=== PATIENT | female | born 1950 | race Caucasian/White ===

== ENCOUNTER 2016-12-28 10:28 | Outpatient (CLI) | payer MEDICAID | END 2016-12-28 15:00 | LOC: ACC 10:28 | DX: I82.409 Acute embolism and thrombosis of unspecified deep veins of unspecified lower extremity (principal); Z79.01 Long term (current) use of anticoagulants; Z51.81 Encounter for therapeutic drug level monitoring | CPT/HCPCS: G0463 ==

== ENCOUNTER → 2016-12-28 | Outpatient (CLI) | payer MEDICAID ==
[~2016-12-28] MED LIST: ATORVASTATIN CA80 MG PO; AZITHROMYCIN250 M1 PO; BACTRIM 400 MG-1 TAB PO; BACTRIM DS 8001 TA1 PO; BACTRIM DS 8001 TAB PO; BISOPROLOL FUMA10 MG PO; BUMETANIDE 1MG T1 MG PO; CLINDAMYCIN HC300 MG PO; FUROSEMIDE 20MG20 MG PO; FUROSEMIDE 40MG40 M1 PO; GABAPENTIN 600600 MG PO; HUMALOG100 U/M1 SC; HUMALOG100 U/ML SC; KEFLEX 500MG.500 MG PO; LANTUS INS100 UNITS/ SC; LASIX 20MG. TAB20 MG PO; LASIX20 MG PO; LEVEMIR 10100 UNITS/ SC; LEVEMIR100 U/ML SC; LEVOTHYROXINE0.05 M2 PO; LISINOPRIL 10MG10 MG PO; LOVASTATIN20 MG PO; METOPROLOL SUCC25 M1 PO; NEURONTIN 300M300 MG PO; PRADAXA75 M1 PO; REQUIP 1 MG TABL1 MG PO; ROPINIROLE HYDRO1 MG PO; TESSALON PERLE100 M1 PO; TORADOL10 MG PO; TRAMADOL 50MG T50 M1 PO; TRAMADOL 50MG T50 MG PO; WARFARIN SOD5 MG PO; ZESTRIL5 MG NG; [UNRECOGNIZED DRUG - OTHER] PO
== END ==
LOC: LAB 11:16
DX: I82.409 Acute embolism and thrombosis of unspecified deep veins of unspecified lower extremity (principal); Z79.01 Long term (current) use of anticoagulants; Z51.81 Encounter for therapeutic drug level monitoring

== ENCOUNTER 2016-12-31 08:56 | Outpatient (CLI) | payer MEDICAID | END 2016-12-31 12:02 | LOC: ACC 08:56 → LAB 08:56 → ACC 12:02 | DX: I82.409 Acute embolism and thrombosis of unspecified deep veins of unspecified lower extremity (principal); Z79.01 Long term (current) use of anticoagulants; Z51.81 Encounter for therapeutic drug level monitoring ==

== ENCOUNTER 2017-01-04 10:30 | Outpatient (CLI) | payer MEDICAID | END 2017-01-04 12:04 | LOC: ACC 10:30 | DX: I82.409 Acute embolism and thrombosis of unspecified deep veins of unspecified lower extremity (principal); Z79.01 Long term (current) use of anticoagulants; Z51.81 Encounter for therapeutic drug level monitoring ==

== ENCOUNTER 2017-01-07 11:27 | Outpatient (CLI) | payer MEDICAID | END 2017-01-07 14:05 | LOC: ACC 11:27 | DX: I82.409 Acute embolism and thrombosis of unspecified deep veins of unspecified lower extremity (principal); Z79.01 Long term (current) use of anticoagulants; Z51.81 Encounter for therapeutic drug level monitoring | CPT/HCPCS: G0463 ==

== ENCOUNTER 2017-02-08 19:35 | Emergency (ER) | payer MEDICARE, MEDICAID ==
[~2017-02-08] VITALS: Ht 165.1 cm; Wt 63.5 kg
[2017-02-08] MEDS ORDERED: HUMALOG KW100 UNIT/1 SQ (19:49)
--- OUTSIDE RECORDS SUMMARY | 2017-02-08 19:53 | External Medical Summary Rpt | CCD ---
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 Name Role Phone Leonidas Lanier MD, Unavailable Unavailable Leonidas Ren Unavailable Unavailable , Sanjeev Ren MD Purpose Continuity of Care Document - 04-26-2013 through 2016 Problems Code Diagnosis DOS Provider Status 250.60 250.60 DIAB 05-03-2013 Pan Andrew NEURO [facility] MANIFEST, Hospital TYPE II OR UNSPEC TYPE, NOT UNCNTRLD 250.70 250.70 DIAB 05-03-2013 Pan Andrew PERIPH [facility] CIRC DIS, Hospital TYPE II OR UNSPEC TYPE, NOT UNCNTRLD 357.2 357.2 05-03-2013 Pan NEUROPATHY [facility] IN DIABETES Hospital 403.90 403.90 05-03-2013 Pan HYPTNSV CHR [facility] KID DIS, Hospital UNSPEC, W CHR KD STAGE I-IV OR UNSP 493.90 493.90 05-03-2013 Pan ASTHMA, [facility] UNSPECIFIED Hospital 585.9 585.9 05-03-2013 Pan CHRONIC [facility] KIDNEY Hospital DISEASE, UNSPECIFIED 785.4 785.4 05-03-2013 [place] GANGRENE [facility] V12.54 V12.54 05-03-2013 Pan 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 V58.61 V58.61 05-03-2013 Pan ANTICOAGULA [facility] NTS,LT,CURR Hospital ENT USE V58.67 V58.67 05-03-2013 Pan LONG-TERM [facility] (CURRENT) Hospital USE OF INSULIN 250.81 250.81 DIAB 04-26-2013 Pan Andrew OT SPEC [facility] MANIFEST, Hospital TYPE I [JUVENILE TYPE], NOT UNCNTR 401.9 401.9 04-26-2013 Pan HYPERTENSIO [facility] 707.15 707.15 04-26-2013 Pan ULCER OF [facility] OF FOOT Allergies, Adverse Reactions, Alerts Type Drug Allergy Adverse Reaction to Substance Substance Reaction Severity Penicillin BLACKS OUT Unknown Butorphanol BLACKED OUT Unknown Medications Na ND Rx Da Fi Fi Am Da Di Ph RX Ph St me C No te ll ll ou ys ag ar # ys at rm s nt no ma ic us Or Da si cy ia de te s n re d Li 00 01 0 No si 17 -3 no 23 0- Lo pr 75 20 ng il 81 14 er 0 5M Ac G ti Ta ve bl et ME 51 01 0 No TO 07 -3 VT 90 0- Lo OL 80 20 ng OL 12 14 er 0 TA Ac RT ti RA ve TE 50 MG TA B SP 46 01 0 No S 28 -2 15 70 9- Lo 00 20 ng GM 66 14 er /6 0 0 Ac ML ti ve HERNANDEZ SP EN SI ON ME 51 01 0 No TO 07 -2 VT 90 9- Lo OL 25 20 ng OL 52 14 er 0 TA Ac RT ti RA ve TE 25 MG TA B 16 01 1 No PI 10 -2 RI 30 9- Lo N 35 20 ng EC 60 14 er 9 81 Ac ti MG ve TA BL ET VT 51 01 1 No AV 07 -2 90 9- Lo TA 78 20 ng TI 22 14 er N 0 SO Ac DI ti UM ve 40 MG TA B LO 00 01 0 No VE 07 -2 NO 50 8- Lo X 62 20 ng 40 04 14 er 1 MG Ac /0 ti .4 ve ML SY RI NG E ME 51 01 1 No TO 07 -2 VT 90 8- Lo OL 25 20 ng OL 52 14 er 0 TA Ac RT ti RA ve TE 25 MG TA B FU 51 01 2 No RO 07 -2 SE 90 8- Lo PA 07 20 ng DE 22 14 er 0 20 Ac ti MG ve TA BL ET CO 00 01 2 No UM 05 -2 AD 60 8- Lo IN 17 20 ng 5 27 14 er 0 MG Ac ti TA ve BL ET RE 00 01 2 No QU 00 -2 IP 74 8- Lo 1 89 20 ng 22 14 er MG 0 Ac TA ti BL ve ET VA 00 01 2 No NC 40 -2 OM 96 8- Lo YC 53 20 ng IN 30 14 er 1 1 Ac GM ti ve AL SO 00 01 2 No DI 40 -2 UM 97 8- Lo 98 20 ng CH 30 14 er LO 2 RI Ac DE ti ve 0. 9% SO JAY TI ON LI 63 01 2 No SI 73 -2 NO 90 7- Lo VT 34 20 ng IL 91 14 er 0 10 Ac ti MG ve TA BL ET FS 01 3 No -2 BL 7- Lo OO 20 ng D 14 er HERNANDEZ GA Ac R ti ve HU 00 01 3 No MA 00 -2 LO 27 7- Lo G 51 20 ng 10 01 14 er 0 7 UN Ac IT ti S/ ve ML AL FU 00 01 0 No RO 40 -2 SE 96 7- Lo PA 10 20 ng DE 20 14 er 4 40 Ac ti MG ve /4 ML AL Ga 68 01 3 No ba 08 -2 pe 40 7- Lo nt 56 20 ng in 30 14 er 1 30 Ac 0M ti G ve Ca ps ul e VA 00 01 0 No NC 40 -2 OM 96 7- Lo YC 53 20 ng IN 30 14 er 1 1 Ac GM ti ve AL SO 00 01 0 No DI 40 -2 UM 97 7- Lo 98 20 ng CH 30 14 er LO 2 RI Ac DE ti ve 0. 9% SO JAY TI ON Vital Signs 05-03-2013 11:07 Name Value Interpretat Reference Comment ion Range Body 98.5 [degF] Temperature BP 69 mm[Hg] Diastolic BP Systolic 125 mm[Hg] Heart 85 /min Rate/Pulse Respiratory 20 /min Rate 05-03-2013 08:00 Name Value Interpretat Reference Comment ion Range O2% 98 % 04-30-2013 20:00 Name Value Interpretat Reference Comment ion Range O2% 97 % 04-30-2013 13:40 Name Value Interpretat Reference Comment ion Range Body 98.4 [degF] Temperature BP 99 mm[Hg] Diastolic BP Systolic 153 mm[Hg] Height 165.10 cm Respiratory 20 /min Rate Weight 247 [lb_av] Measured Weight 112.124 kg Measured 04-30-2013 13:38 Name Value Interpretat Reference Comment ion Range Heart 88 /min Rate/Pulse 04-26-2013 15:35 Name Value Interpretat Reference Comment ion Range Body 98.1 [degF] Temperature BP 82 mm[Hg] Diastolic BP Systolic 146 mm[Hg] Heart 90 /min Rate/Pulse O2% 95 % Respiratory 20 /min Rate 04-26-2013 15:17 Name Value Interpretat Reference Comment ion Range BP 103 mm[Hg] Diastolic BP Systolic 153 mm[Hg] Heart 90 /min Rate/Pulse O2% 99 % Respiratory 20 /min Rate Results Labs Lab Lab Date Result Refere Interp Status Commen Order Detail nces retati t Range on Whole blood INR measurement (02-01-2017 11:55) Prothro = 55.2 9.4-11. complet mbin 017 SECONDS 8 ed time 11:55 (PT) in platele t poor p Whole = 5.03 0.9-1.1 complet blood 017 ed INR 11:55 measure ment Whole blood INR measurement (02-01-2017 10:30) Whole = 5.0 0.9-1.1 complet blood 017 ed INR 10:30 measure ment Hemoglobin A1c in Blood (11-26-2016 09:28) Hemoglo 5.7 % 0.0% Normal complet bin A1c 017 - ed in 09:28 7.0% Blood Phosphate SerPl-mCnc (10-30-2016 06:17) Phospha 4.4 2.5-4.5 complet te 017 mg/dL ed SerPl-m 06:17 Cnc Magnesium SerPl-mCnc (10-30-2016 06:17) Magnesi 1.9 1.9-2.4 complet um 017 mg/dL ed SerPl-m 06:17 Cnc Phosphate SerPl-mCnc (10-28-2016 02:36) Phospha 5.5 2.5-4.5 complet te 017 mg/dL ed SerPl-m 02:36 Cnc Magnesium SerPl-mCnc (10-28-2016 02:36) Magnesi 2 2.1 1.9-2.4 complet um 017 mg/dL ed SerPl-m 02:36 Cnc Cortis SerPl-mCnc (10-27-2016 12:14) Cortis 23.0 complet SerPl-m 017 ug/dL ed Cnc 12:14 Cortis SerPl-mCnc (10-27-2016 11:44) Cortis 22.2 complet SerPl-m 017 ug/dL ed Cnc 11:44 Lactate Bld-sCnc (10-27-2016 11:10) Lactate 1.8 complet 017 mmol/L ed Bld-sCn 11:10 c Cortis SerPl-mCnc (10-27-2016 10:55) Cortis 15.5 complet SerPl-m 017 ug/dL ed Cnc 10:55 Vancomycin SerPl-mCnc (10-27-2016 02:04) Vancomy 18.9 0-40.0 complet isai 017 ug/mL ed SerPl-m 02:04 Cnc MDRO Wnd (10-26-2016 19:22) Bacteri [id number] complet a XXX 017 00 not ed Anaerob 19:22 isolate e+Aerob d e Cult (qualif ier value) SCT NMDR NO MULTI DRUG RESISTA NT ORGANIS MS ISOLATE D L CC XXX NOTAP complet VC-aCnc 017 NOT ed 19:22 APPLICA BLE L Hgb A1c MFr Bld (10-26-2016 07:51) Hgb A1c 6.1 % 4.7-6.0 complet MFr 017 ed Bld 07:51 Lactate Bld-sCnc (10-26-2016 04:23) Lactate 1.4 complet 017 mmol/L ed Bld-sCn 04:23 c Phosphate SerPl-mCnc (10-26-2016 03:45) Phospha 5.4 2.5-4.5 complet te 017 mg/dL ed SerPl-m 03:45 Cnc Magnesium SerPl-mCnc (10-26-2016 03:45) Magnesi 2.1 1.9-2.4 complet um 017 mg/dL ed SerPl-m 03:45 Cnc Ca-I SerPl ISE-sCnc (10-26-2016 03:45) Ca-I 4.1 4.6-5.1 complet SerPl 017 mg/dL ed ISE-sCn 03:45 c Hgb A1c MFr Bld (10-26-2016 03:45) Hgb A1c 6.2 % 4.7-6.0 complet MFr 017 ed Bld 03:45 Ketones SerPl-mCnc (10-25-2016 22:22) Ketones NEG NEGATIV complet 017 NEGATIV E ed SerPl-m 22:22 E L Cnc Cortis SerPl-mCnc (10-25-2016 22:22) Cortis 11.5 complet SerPl-m 017 ug/dL ed Cnc 22:22 Prealb SerPl-mCnc (10-25-2016 22:22) Prealb 8.0 20-41 complet SerPl-m 017 mg/dL ed Cnc 22:22 Magnesium SerPl-mCnc (10-25-2016 22:22) Magnesi 2.1 1.9-2.4 complet um 017 mg/dL ed SerPl-m 22:22 Cnc Salicylates SerPl-sCnc (10-25-2016 22:22) Salicyl 0.8 0-25.0 complet ates 017 mg/dL ed SerPl-s 22:22 Cnc NT-proBNP SerPl-mCnc (10-25-2016 22:22) NT-proB [id number] 0-899 complet ELECTROLYSIS INVESTIGATOR 017 pg/mL ed SerPl-m 22:22 Cnc Lactate Bld-sCnc (10-25-2016 21:42) Lactate 3.0 complet 017 mmol/L ed Bld-sCn 21:42 c Ca-I SerPl ISE-sCnc (10-25-2016 21:42) Ca-I 4.1 4.6-5.1 complet SerPl 017 mg/dL ed ISE-sCn 21:42 c Lactate Bld-sCnc (10-25-2016 21:42) Lactate DUP complet 017 DUPLICA ed Bld-sCn 21:42 TE c ORDER,C REDITED L mmol/L Bacteria Ur Cult (10-25-2016 20:32) Bacteri [id number] complet a XXX 017 07 ed Anaerob 20:32 Escheri e+Aerob james e Cult coli (organi ) SCT ECOL ESCHERI JAMES COLI L CC XXX NOTAP complet VC-aCnc 017 NOT ed 20:32 APPLICA BLE L Sodium Ur-sCnc (10-25-2016 20:32) Sodium 85 complet Ur-sCnc 017 mmol/L ed 20:32 Creat Ur-mCnc (10-25-2016 20:32) Creat 86 complet Ur-mCnc 017 mg/dL ed 20:32 Bacteria XXX Anaerobe+Aerobe Cult (10-25-2016 17:49) Bacteri [id number] complet a XXX 017 06 No ed Anaerob 17:49 growth e+Aerob (qualif e Cult ier value) SCT NGB5 NO GROWTH DAY 4. L Bacteria XXX Anaerobe+Aerobe Cult (10-25-2016 17:10) Bacteri [id number] complet a XXX 017 06 No ed Anaerob 17:10 growth e+Aerob (qualif e Cult ier value) SCT NGB5 NO GROWTH DAY 4. L Phosphate SerPl-mCnc (10-25-2016 17:10) Phospha 5.7 2.5-4.5 complet te 017 mg/dL ed SerPl-m 17:10 Cnc Magnesium SerPl-mCnc (10-25-2016 17:10) Magnesi 2.2 1.9-2.4 complet um 017 mg/dL ed SerPl-m 17:10 Cnc Lactate Bld-sCnc (10-25-2016 17:10) Lactate 4.9 complet 017 mmol/L ed Bld-sCn 17:10 c Differential panel, method unspecified - (10-25-2016 14:15) Anisocy 2+ complet tosis 017 ed [Presen 14:15 ce] in Blood LYMPH 8 % 10% - Low complet 017 50% ed 14:15 Platele NORMAL complet ts 017 ed [Presen 14:15 ce] in Blood by Light microsc opy Stomato 1+ complet cytes 017 ed [Presen 14:15 ce] in Blood by Light microsc opy Bas Metab 2000 Pnl SerPl (09-24-2016 11:47) Glucose 130 70-130 complet BldC 017 mg/dL ed Glucomt 11:47 r-mCnc Prothrombin time (09-24-2016 08:20) INR PPP 2.56 complet 017 ed 08:20 Prothro 28.7 9.6-11. complet mbin 017 Seconds 5 ed time 08:20 Bas Metab 1999 Pnl SerPl (09-24-2016 07:57) Glucose 113 70-130 complet BldC 017 mg/dL ed Glucomt 07:57 r-[facility] Bas Metab 1999 Pnl SerPl (09-23-2016 20:31) Glucose 143 70-130 complet BldC 017 mg/dL ed Glucomt 20:31 r-[facility] Bas Metab 1999 Pnl SerPl (09-23-2016 16:00) Glucose 143 70-130 complet BldC 017 mg/dL ed [facility] (09-23-2016 14:05) INR PPP 2.67 complet 017 ed 14:05 Prothro 30.0 9.6-11. complet mbin 017 Seconds 5 ed time 14:05 Bas Metab 1999 Pnl SerPl (09-23-2016 12:10) Glucose 98 70-130 complet BldC 017 mg/dL ed Glucomt 12:10 [facility] P[facility] Ser[facility] (09-23-2016 08:42) Glucose 99 70-130 complet BldC 017 mg/dL ed [facility]comt 08:42 [facility] Ren[facility] Func [facility] Pnl SerPl (09-23-2016 07:28) GFR/BSA 16 >60 complet .pred 017 mL/min/ ed SerPl 07:28 1.73 MDRD-Ar VRat BUN/Cre 5.5 7.0-25. complet at 017 0 ed SerPl 07:28 Anion 8.0 3.0-11. complet Gap3 017 mmol/L 0 ed SerPl-s 07:28 Cnc Phospha 2.7 2.4-5.1 complet te 017 mg/dL ed SerPl-m 07:28 Cnc Albumin 2.80 3.20-4. complet 017 g/dL 80 ed SerPl-m 07:28 Cnc Calcium 06-22-2 8.4 8.7-10. complet 017 mg/dL 4 ed XXX-sCn 07:28 c CO2 09-23-2 25.0 20.0-31 complet SerPl-s 017 mmol/L .0 ed Cnc 07:28 Chlorid 09-23-2 103 99-109 complet e 017 mmol/L ed SerPl-s 07:28 Cnc Potassi 09-23-2 3.4 3.5-5.5 complet um 017 mmol/L ed Bld-sCn 07:28 c Sodium 09-23-2 136 132-146 complet Bld-sCn 017 mmol/L ed c 07:28 Creat 09-23-2 2.90 0.60-1. complet Bld-mCn 017 mg/dL 30 ed c 07:28 BUN 09-23-2 16 9-23 complet Bld-mCn 017 mg/dL ed c 07:28 Glucose 122 70-100 complet 017 mg/dL ed Bld-mCn 07:28 c CBC (hemogram) Bld Auto (09-23-2016 07:28) Platele 09-23-2 395 150-450 complet t # Bld 017 10*3/mm ed Auto 07:28 3 PMV Bld 2 8.8 fL 6.0-12. complet Auto 017 0 ed 07:28 RDW RBC 09-23-2 59.2 fl 37.0-54 complet Auto 017 .0 ed 07:28 RDW RBC 09-23-2 18.9 % 11.3-14 complet 017 .5 ed Auto-Rt 07:28 o MCHC 09-23-2 29.5 32.0-36 complet RBC 017 g/dL .0 ed Auto-mC 07:28 nc MCH RBC 09-23-2 25.7 pg 27.0-31 complet Qn 017 .0 ed Auto 07:28 MCV RBC 09-23-2 87.1 fL 80.0-99 complet Auto 017 .0 ed 07:28 Hct VFr 09-23-2 33.2 % 34.5-44 complet Bld 017 .0 ed Auto 07:28 Hgb 09-23-2 9.8 11.5-15 complet Bld-mCn 017 g/dL .5 ed c 07:28 RBC # 22-2 3.81 3.89-5. complet Bld 017 10*6/mm 14 ed Auto 07:28 3 WBC 11.09 3.50-10 complet nRBC 017 10*3/mm .80 ed cor # 07:28 3 Bld Bas Metab 2000 Pnl SerPl (09-22-2016 19:50) Glucose 146 70-130 complet BldC 017 mg/dL ed [facility]comt 19:50 [facility] Ser[facility] (09-22-2016 17:31) Glucose 193 70-130 complet BldC 017 mg/dL ed Glucomt 17:31 r-[facility] Bas Metab 1999 Pnl SerPl (09-22-2016 12:05) Glucose 117 70-130 complet BldC 017 mg/dL ed Glucomt 12:05 [facility] 1999 Pnl SerPl (09-22-2016 08:33) Glucose 107 70-130 complet BldC 017 mg/dL ed Glucomt 08:33 [facility] Prothrombin time (09-22-2016 07:40) INR PPP 2.13 complet 017 ed 07:40 Prothro 23.8 9.6-11. complet mbin 017 Seconds 5 ed time 07:40 Bas Metab 1999 Pnl SerPl (09-21-2016 19:23) Glucose 140 70-130 complet BldC 017 mg/dL ed Glucomt 19:23 [facility] Pnl Ser[facility] (09-21-2016 16:23) Glucose 09-21- 126 70-130 complet BldC 017 mg/dL ed Glucomt 16:23 [facility] A+B+C 7a Pnl Ser (09-21-2016 13:28) HCV Ab [id number] Non-Su complet Ser 017 07 ctive ed Donr Ql 13:28 Non-Su ctive SCT HBV [id number] Non-[place] complet core 017 07 ctive ed IgM 13:28 Non-[place] SerPl ctive Ql IA SCT HAV IgM [id number] Non-Su complet SerPl 017 07 ctive ed Ql IA 13:28 Non-[place] ctive SCT HBV [id number] Non-[place] complet surface 017 07 ctive ed Ag 13:28 Non-Su SerPl ctive Ql IA SCT Bas Metab 1999 Pnl SerPl (09-21-2016 11:38) Glucose 124 70-130 complet BldC 017 mg/dL ed Glucomt 11:38 r[facility] Bas Metab 1999 Pnl SerPl (09-21-2016 07:35) Glucose 95 70-130 complet BldC 017 mg/dL ed Glucomt 07:35 [facility] Renal Func 1999 Pnl SerPl (09-21-2016 03:47) GFR/BSA 12 >60 complet .pred 017 mL/min/ ed SerPl 03:47 1.73 MDRD-Ar VRat BUN/Cre 5.9 7.0-25. complet at 017 0 ed SerPl 03:47 Anion 6.0 3.0-11. complet Gap3 017 mmol/L 0 ed SerPl-s 03:47 Cnc Phospha 2.7 2.4-5.1 complet te 017 mg/dL ed SerPl-m 03:47 Cnc Albumin 2.80 3.20-4. complet 017 g/dL 80 ed SerPl-m 03:47 Cnc Calcium 8.6 8.7-10. complet 017 mg/dL 4 ed XXX-sCn 03:47 c CO2 27.0 20.0-31 complet SerPl-s 017 mmol/L .0 ed Cnc 03:47 Chlorid 102 99-109 complet e 017 mmol/L ed SerPl-s 03:47 Cnc Potassi 3.2 3.5-5.5 complet um 017 mmol/L ed Bld-sCn 03:47 c Sodium 135 132-146 complet Bld-sCn 017 mmol/L ed c 03:47 Creat 3.90 0.60-1. complet Bld-mCn 017 mg/dL 30 ed c 03:47 BUN 23 9-23 complet Bld-mCn 017 mg/dL ed c 03:47 Glucose 101 70-100 complet 017 mg/dL ed Bld-mCn 03:47 c Prothrombin time (09-21-2016 03:47) INR PPP 2.63 complet 017 ed 03:47 Prothro 29.5 9.6-11. complet mbin 017 Seconds 5 ed time 03:47 Bas Metab 1999 Pnl SerPl (09-20-2016 20:27) Glucose 169 70-130 complet BldC 017 mg/dL ed Glucomt 20:27 r-mCnc Bas Metab 1999 Pnl SerPl (09-20-2016 16:38) Glucose 170 70-130 complet BldC 017 mg/dL ed Glucomt 16:38 r-mCnc Bas Metab 1999 Pnl SerPl (09-20-2016 11:35) Glucose 139 70-130 complet BldC 017 mg/dL ed Glucomt 11:35 r[facility] Bas Metab 1999 Pnl SerPl (09-20-2016 07:50) Glucose 120 70-130 complet BldC 017 mg/dL ed Glucomt 07:50 r-nc Prothrombin time (09-20-2016 03:24) INR PPP 3.44 complet 017 ed 03:24 Prothro 38.9 9.6-11. complet mbin 017 Seconds 5 ed time 03:24 Comp Metab 1997 Pnl SerPl (09-20-2016 03:24) Anion 9.0 3.0-11. complet Gap3 017 mmol/L 0 ed SerPl-s 03:24 Cnc BUN/Cre 4.4 7.0-25. complet at 017 0 ed SerPl 03:24 Albumin 1.0 1.5-2.5 complet /Glob 017 g/dL ed SerPl 03:24 Globuli 2.6 complet n Ur 017 gm/dL ed Elph-mC 03:24 nc GFR/BSA 12 >60 complet .pred 017 mL/min/ ed SerPl 03:24 1.73 MDRD-Ar VRat Bilirub 0.4 0.3-1.2 complet 017 mg/dL ed SerPl-m 03:24 Cnc ALP 09-20-2 126 U/L 25-100 complet SerPl-c 017 ed Cnc 03:24 AST 09-20-2 29 U/L 0-33 complet SerPl-c 017 ed Cnc 03:24 ALT 09-20-2 15 U/L 7-40 complet SerPl w 017 ed 03:24 P-5'-P- cCnc Albumin 09-20-2 2.60 3.20-4. complet 017 g/dL 80 ed SerPl-m 03:24 Cnc Prot 09-20-2 5.2 5.7-8.2 complet SerPl-m 017 g/dL ed Cnc 03:24 Calcium 09-20-2 8.2 8.7-10. complet 017 mg/dL 4 ed XXX-sCn 03:24 c CO2 09-20-2 25.0 20.0-31 complet SerPl-s 017 mmol/L .0 ed Cnc 03:24 Chlorid 09-20-2 103 99-109 complet e 017 mmol/L ed SerPl-s 03:24 Cnc Potassi 09-20-2 3.4 3.5-5.5 complet um 017 mmol/L ed Bld-sCn 03:24 c Sodium 09-20-2 137 132-146 complet Bld-sCn 017 mmol/L ed c 03:24 Creat 09-20-2 3.90 0.60-1. complet Bld-mCn 017 mg/dL 30 ed c 03:24 BUN 09-20-2 17 9-23 complet Bld-mCn 017 mg/dL ed c 03:24 Glucose 09-20-2 127 70-100 complet 017 mg/dL ed Bld-mCn 03:24 c CBC W Diff pnl,unspecified Bld (09-20-2016 03:24) Imm -19-2 0.07 0.00-0. complet Granulo 017 10*3/mm 03 ed cytes # 03:24 3 Bld Basophi 19-2 0.08 0.00-0. complet ls # 017 10*3/mm 20 ed Bld 03:24 3 Auto Eosinop 09-20-2 0.29 0.10-0. complet hil # 017 10*3/mm 30 ed Bld 03:24 3 Auto Monocyt 06-19-2 0.91 0.00-1. complet es # 017 10*3/mm 00 ed Bld 03:24 3 Auto Lymphoc -19-2 1.20 0.60-4. complet ytes # 017 10*3/mm 80 ed Bld 03:24 3 Auto Neutrop -19-2 8.48 1.50-8. complet hils # 017 10*3/mm 30 ed Bld 03:24 3 Auto Imm 19-2 0.6 % 0.0-0.6 complet Granulo 017 ed cytes/l 03:24 euk NFr Bld Basophi 19-2 0.7 % 0.0-1.0 complet ls/leuk 017 ed NFr 03:24 Bld Auto Eosinop 09-20-2 2.6 % 0.0-3.0 complet hil/mick 017 ed k NFr 03:24 Bld Auto Monocyt 19-2 8.3 % 0.0-12. complet es/leuk 017 0 ed NFr 03:24 Bld Auto Lymphoc 19-2 10.9 % 24.0-44 complet ytes/le 017 .0 ed uk NFr 03:24 Bld Auto Neutrop 19-2 76.9 % 41.0-71 complet hils/le 017 .0 ed uk NFr 03:24 Bld Auto Platele 19-2 397 150-450 complet t # Bld 017 10*3/mm ed Auto 03:24 3 PMV Bld 09-20-2 9.1 fL 6.0-12. complet Auto 017 0 ed 03:24 RDW RBC 19-2 58.1 fl 37.0-54 complet Auto 017 .0 ed 03:24 RDW RBC 19-2 18.4 % 11.3-14 complet 017 .5 ed Auto-Rt 03:24 o MCHC 09-20-2 30.0 32.0-36 complet RBC 017 g/dL .0 ed Auto-mC 03:24 nc MCH RBC 09-20-2 26.1 pg 27.0-31 complet Qn 017 .0 ed Auto 03:24 MCV RBC 09-20-2 87.0 fL 80.0-99 complet Auto 017 .0 ed 03:24 Hct VFr 30.0 % 34.5-44 complet Bld 017 .0 ed Auto 03:24 Hgb 9.0 11.5-15 complet Bld-mCn 017 g/dL .5 ed c 03:24 RBC # 3.45 3.89-5. complet Bld 017 10*6/mm 14 ed Auto 03:24 3 WBC 11.03 3.50-10 complet nRBC 017 10*3/mm .80 ed cor # 03:24 3 Bld Phosphate SerPl-mCnc (09-20-2016 03:24) Phospha 2.4 2.4-5.1 complet te 017 mg/dL ed SerPl-m 03:24 Cnc Mg Ionized SerPl-mCnc (09-20-2016 03:24) Magnesi 2.0 1.3-2.7 complet um 017 mg/dL ed SerPl-m 03:24 Cnc Bas Metab 2000 Pnl SerPl (09-19-2016 20:20) Glucose 147 70-130 complet BldC 017 mg/dL ed Glucomt 20:20 r-mCnc Bas Metab 2000 Pnl SerPl (09-19-2016 16:28) Glucose 09-19- 141 70-130 complet BldC 017 mg/dL ed Glucomt 16:28 r-mCnc Bas Metab 2000 Pnl SerPl (09-19-2016 11:46) Glucose 156 70-130 complet BldC 017 mg/dL ed Glucomt 11:46 r-mCnc Bas Metab 2000 Pnl SerPl (09-19-2016 07:41) Glucose 09-19- 105 70-130 complet BldC 017 mg/dL ed Glucomt 07:41 r-mCnc Cortis SerPl-mCnc (09-19-2016 07:18) Cortis 31.00 complet SerPl-m 017 mcg/dL ed Cnc 07:18 Cortis SerPl-mCnc (09-19-2016 06:49) Cortis 25.30 complet SerPl-m 017 mcg/dL ed Cnc 06:49 Ferritin SerPl-mCnc (09-19-2016 06:07) Ferriti 2007.00 10.00-2 complet n 017 ng/mL 91.00 ed SerPl-m 06:07 Cnc Iron+TIBC Pnl SerPl (09-19-2016 06:07) Iron 21 % 15-50 complet Satn 017 ed MFr 06:07 SerPl TIBC 144 250-450 complet SerPl-m 017 mcg/dL ed Cnc 06:07 Iron 30 50-175 complet 24h 017 mcg/dL ed Ur-mRat 06:07 e Cortis SerPl-mCnc (09-19-2016 06:07) Cortis 14.90 complet SerPl-m 017 mcg/dL ed Cnc 06:07 Troponin I SerPl-mCnc (09-19-2016 06:07) Troponi 1.533 <=0.039 complet n I 017 ng/mL ed SerPl-m 06:07 Cnc Renal Func 2000 Pnl SerPl (09-19-2016 06:07) GFR/BSA 13 >60 complet .pred 017 mL/min/ ed SerPl 06:07 1.73 MDRD-Ar VRat BUN/Cre 4.2 7.0-25. complet at 017 0 ed SerPl 06:07 Anion 9.0 3.0-11. complet Gap3 017 mmol/L 0 ed SerPl-s 06:07 Cnc Phospha 2.4 2.4-5.1 complet te 017 mg/dL ed SerPl-m 06:07 Cnc Albumin 2.80 3.20-4. complet 017 g/dL 80 ed SerPl-m 06:07 Cnc Calcium 8.3 8.7-10. complet 017 mg/dL 4 ed XXX-sCn 06:07 c CO2 29.0 20.0-31 complet SerPl-s 017 mmol/L .0 ed Cnc 06:07 Chlorid 101 99-109 complet e 017 mmol/L ed SerPl-s 06:07 Cnc Potassi 3.6 3.5-5.5 complet um 017 mmol/L ed Bld-sCn 06:07 c Sodium 139 132-146 complet Bld-sCn 017 mmol/L ed c 06:07 Creat 3.60 0.60-1. complet Bld-mCn 017 mg/dL 30 ed c 06:07 BUN 15 9-23 complet Bld-mCn 017 mg/dL ed c 06:07 Glucose 113 70-100 complet 017 mg/dL ed Bld-mCn 06:07 c Mg Ionized SerPl-mCnc (09-19-2016 06:07) Magnesi 2.1 1.3-2.7 complet um 017 mg/dL ed SerPl-m 06:07 Cnc Prothrombin time (09-19-2016 06:07) INR PPP 6.85 complet 017 ed 06:07 Prothro 79.2 9.6-11. complet mbin 017 Seconds 5 ed time 06:07 Bas Metab 1999 Pnl SerPl (09-18-2016 21:06) Glucose 142 70-130 complet BldC 017 mg/dL ed Glucomt 21:06 r-mCnc C dif Tox gens Stl Ql PCR (09-18-2016 20:59) C dif [id number] Negativ complet Tox 017 01 e ed gens 20:59 Detecte Stl Ql d SCT PCR Bas Metab 1999 Pnl SerPl (09-18-2016 16:18) Glucose 145 70-130 complet BldC 017 mg/dL ed Glucomt 16:18 r-mCnc Troponin I SerPl-mCnc (09-18-2016 12:24) Troponi 1.771 <=0.039 complet n I 017 ng/mL ed SerPl-m 12:24 Cnc Vit D25+D1,25 OH+D1,25 Pnl SerPl-mCnc (09-18-2016 12:24) 25(OH)D 38.1 complet 3 017 ng/ml ed SerPl-m 12:24 Cnc Prothrombin time (09-18-2016 12:24) INR PPP 6.88 complet 017 ed 12:24 Prothro 79.6 9.6-11. complet mbin 017 Seconds 5 ed time 12:24 Bas Metab 1999 Pnl SerPl (09-18-2016 11:37) Glucose 132 70-130 complet BldC 017 mg/dL ed Glucomt 11:37 r-mCnc Bas Metab 1999 Pnl SerPl (09-18-2016 07:21) Glucose 109 70-130 complet BldC 017 mg/dL ed Glucomt 07:21 r-mCnc Bas Metab 1999 Pnl SerPl (09-18-2016 05:15) Glucose 119 70-130 complet BldC 017 mg/dL ed Glucomt 05:15 r-mCnc LDH SerPl-cCnc (09-18-2016 04:21) LDH 281 U/L 120-246 complet SerPl-c 017 ed Cnc 04:21 Cortis SerPl-mCnc (09-18-2016 04:21) Cortis 20.10 complet SerPl-m 017 mcg/dL ed Cnc 04:21 Amylase SerPl-cCnc (09-18-2016 04:21) Amylase 22 U/L 30-118 complet 017 ed SerPl-c 04:21 Cnc Bacteria Bld Cult (09-18-2016 04:21) Bacteri No complet a XXX 017 growth ed Aerobe 04:21 at 5 Cult days Bacteria Bld Cult (09-18-2016 03:28) Bacteri 09-18- No complet a XXX 017 growth ed Aerobe 03:28 at 5 Cult days BNP SerPl-mCnc (09-18-2016 03:28) BNP 1373.0 0.0-100 complet SerPl-m 017 pg/mL .0 ed Cnc 03:28 CK Pnl SerPl (09-18-2016 03:28) CK MB 2.96 0.00-5. complet SerPl-c 017 ng/mL 00 ed Cnc 03:28 CK 139 U/L 26-174 complet SerPl-c 017 ed Cnc 03:28 Troponin I SerPl-mCnc (09-18-2016 03:28) Troponi 2.052 <=0.039 complet n I 017 ng/mL ed SerPl-m 03:28 Cnc Procalcitonin SerPl-mCnc (09-18-2016 03:18) Procalc 1.03 complet itonin 017 ng/mL ed SerPl-m 03:18 Cnc Vancomycin Trough SerPl-mCnc (05-03-2013 06:25) Vancomy 11.2 10.0-20 complet isai 014 mcg/mL .0 ed Trough 06:25 SerPl-m Cnc BASIC METABOLIC PANEL (05-03-2013 06:25) Glucose 181 74-106 complet 014 mg/dL ed Bld-mCn 06:25 c BUN 40 7-18 complet Bld-mCn 014 mg/dL ed c 06:25 Creat 2.1 0.6-1.0 complet SerPl-m 014 mg/dL ed Cnc 06:25 Creat 50 50-200 complet Cl 014 ML/MIN ed predict 06:25 ed SerPl C-G-vRa te GFR/BSA 24 59- complet .pred 014 ML/MIN ed SerPl 06:25 Schwart z-vRate Sodium 142 136-145 complet SerPl-s 014 mmoL/L ed Cnc 06:25 Potassi 5.6 3.5-5.1 complet um 014 mmoL/L ed SerPl-s 06:25 Cnc Chlorid 108 98-107 complet e 014 mmoL/L ed SerPl-s 06:25 Cnc CO2 25 21.0-32 complet SerPl-s 014 mmoL/L .0 ed Cnc 06:25 Calcium 8.3 8.5-10. complet 014 mg/dL 1 ed SerPl-m 06:25 Cnc Glucose BldC Glucomtr-[facility] (05-02-2013 19:21) Glucose 214 70-110 complet BldC 014 mg/dl [facility] (05-02-2013 16:32) Glucose 205 70-110 complet BldC 014 mg/dl ed Glucomt 16:32 r-[facility] BASIC METABOLIC PANEL (05-02-2013 16:30) Glucose 194 74-106 complet 014 mg/dL ed Bld-mCn 16:30 c BUN 40 7-18 complet Bld-mCn 014 mg/dL ed c 16:30 Creat 2.2 0.6-1.0 complet SerPl-m 014 mg/dL ed Cnc 16:30 Creat 48 50-200 complet Cl 014 ML/MIN ed predict 16:30 ed SerPl C-G-vRa te GFR/BSA 23 59- complet .pred 014 ML/MIN ed SerPl 16:30 Schwart z-vRate Sodium 140 136-145 complet SerPl-s 014 mmoL/L ed Cnc 16:30 Potassi 5.7 3.5-5.1 complet um 014 mmoL/L ed SerPl-s 16:30 Cnc Chlorid 107 98-107 complet e 014 mmoL/L ed SerPl-s 16:30 Cnc CO2 27 21.0-32 complet SerPl-s 014 mmoL/L .0 ed Cnc 16:30 Calcium 8.2 8.5-10. complet 014 mg/dL 1 ed SerPl-m 16:30 [facility] Glucose dC [facility] (05-02-2013 11:59) Glucose 246 70-110 complet BldC 014 mg/dl ed Glucomt 11:59 [facility] Glucose dC [facility] (05-02-2013 06:41) Glucose 204 70-110 complet BldC 014 mg/dl ed Glucomt 06:41 [facility] LIPID PROFILE (05-02-2013 06:30) Cholest 192 Less complet 014 mg/dL than ed SerPl-m 06:30 200 Cnc HDLc 31.0 40-60 complet SerPl-m 014 MG/DL ed Cnc 06:30 LDLc 123.6 0-130 complet SerPl 014 mg/dL ed Calc-mC 06:30 nc VLDL 37.4 0-40 complet CHOLEST 014 UNK ed BESSIE 06:30 Trigl 187 30-200 complet SerPl-m 014 mg/dL ed Cnc 06:30 COMPREHENSIVE METABOLIC PANEL (05-02-2013 06:30) Glucose 221 74-106 complet 014 mg/dL ed Bld-mCn 06:30 c BUN 42 7-18 complet Bld-mCn 014 mg/dL ed c 06:30 Creat 2.4 0.6-1.0 complet SerPl-m 014 mg/dL ed Cnc 06:30 Creat 44 50-200 complet Cl 014 ML/MIN ed predict 06:30 ed SerPl C-G-vRa te GFR/BSA 21 59- complet .pred 014 ML/MIN ed SerPl 06:30 Schwart z-vRate Sodium 137 136-145 complet SerPl-s 014 mmoL/L ed Cnc 06:30 Potassi 5.5 3.5-5.1 complet um 014 mmoL/L ed SerPl-s 06:30 Cnc Chlorid 107 98-107 complet e 014 mmoL/L ed SerPl-s 06:30 Cnc CO2 24 21.0-32 complet SerPl-s 014 mmoL/L .0 ed Cnc 06:30 Calcium 8.0 8.5-10. complet 014 mg/dL 1 ed SerPl-m 06:30 Cnc Prot 6.4 6.4-8.2 complet SerPl-m 014 gm/dL ed Cnc 06:30 Albumin 3.0 3.4-5.0 complet 014 gm/dL ed SerPl-m 06:30 Cnc Globuli 3.4 1.3-3.2 complet n 014 gm/dL ed Ser-mCn 06:30 c Albumin 0.9 UNK 1.1-1.8 complet /Glob 014 ed SerPl-m 06:30 Rto Bilirub 0.4 0.2-1.0 complet 014 mg/dL ed SerPl-m 06:30 Cnc AST 14 U/L 15-37 complet SerPl-c 014 ed Cnc 06:30 ALT 17 U/L 12-78 complet SerPl-c 014 ed Cnc 06:30 ALP 142 U/L 50-136 complet SerPl-c 014 ed Cnc 06:30 CBC with AUTO DIFF (05-02-2013 06:30) WBC # 05-02-2 9.0 4.8-10. complet Bld 014 K/MM3 8 ed Auto 06:30 RBC # 05-02-2 3.71 4.2-5.4 complet Bld 014 M/mm3 ed Auto 06:30 Hgb 9.6 12.2-16 complet Bld-mCn 014 g/dL .2 ed c 06:30 Hct Fr 30.6 % 37.0-47 complet Bld 014 .0 ed 06:30 MCV RBC 82.5 fl 82.2-97 complet 014 .8 ed 06:30 MCH RBC 25.8 pg 27-31.2 complet Qn 014 ed Auto 06:30 MEAN 31.3 31.8-35 complet CORPUSC 014 g/dl .4 ed ULAR 06:30 HGB CONC RDW RBC 16.6 % 11.5-17 complet Auto 014 .5 ed 06:30 Platele 358 142-424 complet t Bld 014 K/mm3 ed Ql 06:30 Manual MEAN 7.6 fl 7.4-10. complet PLATELE 014 4 ed T 06:30 VOLUME Granulo 55.7 % 37.0-80 complet cytes 014 .0 ed Fr Bld 06:30 Auto LYMPH % 2 33.5 % 10-50.0 complet 014 ed 06:30 Monocyt 2 6.3 % 1.7-9.3 complet es Fr 014 ed Bld 06:30 Auto Eosinop 2 3.4 % 0.1-12. complet hil Fr 014 0 ed Bld 06:30 Auto Basophi 2 1.0 % 0.1-2.0 complet ls Fr 014 ed Bld 06:30 Auto Granulo 2 5.0 1.8-7.8 complet cytes # 014 K/mm3 ed Bld 06:30 Auto Lymphoc 3.0 0.7-4.5 complet ytes Fr 014 K/mm3 ed Bld 06:30 Auto Monocyt 0.6 0.1-1.0 complet es # 014 K/mm3 ed Bld 06:30 Auto Eosinop 0.3 0.0-0.4 complet hil # 014 K/mm3 ed Bld 06:30 Auto Basophi 0.1 0-0.2 complet ls # 014 K/MM3 ed Bld 06:30 Auto Glucose BldC [facility] (05-01-2013 21:11) Glucose 244 70-110 complet BldC 014 mg/dl ed Glucomt 21:11 r-[facility] Glucose BldC [facility] (05-01-2013 16:44) Glucose 202 70-110 complet BldC 014 mg/dl ed Glucomt 16:44 r-[facility] Glucose BldC [facility] (05-01-2013 11:33) Glucose 218 70-110 complet BldC 014 mg/dl ed Glucomt 11:33 r-[facility] BASIC METABOLIC PANEL (05-01-2013 06:45) Glucose 176 74-106 complet 014 mg/dL ed Bld-mCn 06:45 c BUN 46 7-18 complet Bld-mCn 014 mg/dL ed c 06:45 Creat 2.6 0.6-1.0 complet SerPl-m 014 mg/dL ed Cnc 06:45 Creat 40 50-200 complet Cl 014 ML/MIN ed predict 06:45 ed SerPl C-G-vRa te GFR/BSA 19 59- Low complet .pred 014 ML/MIN alert ed SerPl 06:45 Schwart z-vRate Sodium 136 136-145 complet SerPl-s 014 mmoL/L ed Cnc 06:45 Potassi 5.0 3.5-5.1 complet um 014 mmoL/L ed SerPl-s 06:45 Cnc Chlorid 104 98-107 complet e 014 mmoL/L ed SerPl-s 06:45 Cnc CO2 27 21.0-32 complet SerPl-s 014 mmoL/L .0 ed Cnc 06:45 Calcium 8.4 8.5-10. complet 014 mg/dL 1 ed SerPl-m 06:45 Cnc CBC with AUTO DIFF (05-01-2013 06:45) WBC # 05-01- 8.7 4.8-10. complet Bld 014 K/MM3 8 ed Auto 06:45 RBC # 3.93 4.2-5.4 complet Bld 014 M/mm3 ed Auto 06:45 Hgb 9.9 12.2-16 complet Bld-mCn 014 g/dL .2 ed c 06:45 Hct Fr 32.4 % 37.0-47 complet Bld 014 .0 ed 06:45 MCV RBC 82.3 fl 82.2-97 complet 014 .8 ed 06:45 MCH RBC 25.3 pg 27-31.2 complet Qn 014 ed Auto 06:45 MEAN 30.7 31.8-35 complet CORPUSC 014 g/dl .4 ed ULAR 06:45 HGB CONC RDW RBC 16.3 % 11.5-17 complet Auto 014 .5 ed 06:45 Platele 408 142-424 complet t Bld 014 K/mm3 ed Ql 06:45 Manual MEAN 7.2 fl 7.4-10. complet PLATELE 014 4 ed T 06:45 VOLUME Granulo 58.9 % 37.0-80 complet cytes 014 .0 ed Fr Bld 06:45 Auto LYMPH % 31.0 % 10-50.0 complet 014 ed 06:45 Monocyt 6.0 % 1.7-9.3 complet es Fr 014 ed Bld 06:45 Auto Eosinop 2.9 % 0.1-12. complet hil Fr 014 0 ed Bld 06:45 Auto Basophi 1.3 % 0.1-2.0 complet ls Fr 014 ed Bld 06:45 Auto Granulo 5.2 1.8-7.8 complet cytes # 014 K/mm3 ed Bld 06:45 Auto Lymphoc 2.7 0.7-4.5 complet ytes Fr 014 K/mm3 ed Bld 06:45 Auto Monocyt 0.5 0.1-1.0 complet es # 014 K/mm3 ed Bld 06:45 Auto Eosinop 0.3 0.0-0.4 complet hil # 014 K/mm3 ed Bld 06:45 Auto Basophi 0.1 0-0.2 complet ls # 014 K/MM3 ed Bld 06:45 Auto Glucose BldC [facility] (05-01-2013 06:09) Glucose 166 70-110 complet BldC 014 mg/dl [facility] (04-30-2013 14:25) Glucose 176 74-106 complet 014 mg/dL ed Bld-mCn 14:25 c BUN 46 7-18 complet Bld-mCn 014 mg/dL ed c 14:25 Creat 2.7 0.6-1.0 complet SerPl-m 014 mg/dL ed Cnc 14:25 Creat 39 50-200 complet Cl 014 ML/MIN ed predict 14:25 ed SerPl C-G-vRa te GFR/BSA 18 59- Low complet .pred 014 ML/MIN alert ed SerPl 14:25 Schwart z-vRate Sodium 136 136-145 complet SerPl-s 014 mmoL/L ed Cnc 14:25 Potassi 5.8 3.5-5.1 complet um 014 mmoL/L ed SerPl-s 14:25 Cnc Chlorid 103 98-107 complet e 014 mmoL/L ed SerPl-s 14:25 Cnc CO2 26 21.0-32 complet SerPl-s 014 mmoL/L .0 ed Cnc 14:25 Calcium 8.4 8.5-10. complet 014 mg/dL 1 ed SerPl-m 14:25 Cnc PROTIME/INR (04-30-2013 14:25) PROTHRO 30.1 9.9-11. complet MBIN 014 SECONDS 6 ed TIME 14:25 INR Bld 2.78 0.9-1.1 complet 014 UNK ed 14:25 Encounters Encounter Start End Date Code Location Performer Type Date Inpatient IMP Pan Ren MD (IN) 4 12:40 4 11:[address] [facility] Emergency MACK Lanier MD (ER) 4 15:04 4 15:37 [facility]
--- OUTSIDE RECORDS SUMMARY | 2017-02-08 19:53 | External Medical Summary Rpt | CCD ---
Author Author , KATRIN Organization KATRIN Address Unknown Phone [email or web address] Care Team Providers Care Store Director Name Role Phone Leonidas Lanier MD, Unavailable Unavailable Leonidas Ren Unavailable Unavailable , Sanjeev Ren MD Purpose Continuity of Care Document - 04-26-2013 through 2016 Problems Code Diagnosis DOS Provider Status 250.60 250.60 DIAB 05-03-2013 Pan Andrew NEURO [facility] MANIFEST, Hospital TYPE II OR UNSPEC TYPE, NOT UNCNTRLD 250.70 250.70 DIAB 05-03-2013 Pan Andrew PERIPH [facility] CIRC DIS, Hospital TYPE II OR UNSPEC TYPE, NOT UNCNTRLD 357.2 357.2 05-03-2013 Pan NEUROPATHY [facility] IN DIABETES Hospital 403.90 403.90 05-03-2013 Pan 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, Hospital UNSPEC, W CHR KD STAGE I-IV OR UNSP 493.90 493.90 05-03-2013 Pan ASTHMA, [facility] UNSPECIFIED Hospital 585.9 585.9 05-03-2013 Pan CHRONIC [facility] KIDNEY Hospital DISEASE, UNSPECIFIED 785.4 785.4 05-03-2013 [place] GANGRENE [facility] V12.54 V12.54 05-03-2013 Pan 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 V58.61 V58.61 05-03-2013 Pan ANTICOAGULA [facility] NTS,LT,CURR Hospital ENT USE V58.67 V58.67 05-03-2013 Pan LONG-TERM [facility] (CURRENT) Hospital USE OF INSULIN 250.81 250.81 DIAB 04-26-2013 Pan Andrew OT SPEC [facility] MANIFEST, Hospital TYPE I [JUVENILE TYPE], NOT UNCNTR 401.9 401.9 04-26-2013 Pan HYPERTENSIO [facility] 707.15 707.15 04-26-2013 Pan ULCER OF [facility] OF FOOT Allergies, Adverse Reactions, Alerts Type [...] 51 01 0 No TO 07 -3 SC 90 0- Lo OL 80 20 ng OL 12 14 er 0 TA Ac RT ti RA ve TE 50 MG TA B SP 46 01 0 No S 28 -2 15 70 9- Lo 00 20 ng GM 66 14 er /6 0 0 Ac ML ti ve HERNANDEZ SP EN SI ON ME 51 01 0 No TO 07 -2 SC 90 9- Lo OL 25 20 ng OL 52 14 er 0 TA Ac RT ti RA ve TE 25 MG TA B 16 01 1 No PI 10 -2 RI 30 9- Lo N 35 20 ng EC 60 14 er 9 81 Ac ti MG ve TA BL ET SC 51 01 1 No AV 07 -2 [...] 51 01 1 No TO 07 -2 SC 90 8- Lo OL 25 20 ng OL 52 14 er 0 TA Ac RT ti RA ve TE 25 MG TA B FU 51 01 2 No RO 07 -2 SE 90 8- Lo HI 07 20 ng DE 22 14 er [...] SI 73 -2 NO 90 7- Lo SC 34 20 ng IL 91 14 er [...] RO 40 -2 SE 96 7- Lo HI 10 20 ng DE 20 14 er [...] 02:04 Cnc MDRO Wnd (10-26-2016 19:22) Bacteri [id number] complet a XXX 017 00 not ed [...] 22:22 Cnc NT-proBNP SerPl-mCnc (10-25-2016 22:22) NT-proB 41685 0-899 complet BACK SEAM STITCHER 017 pg/mL ed SerPl-m 22:22 Cnc Lactate Bld-sCnc (10-25-2016 21:42) Lactate 3.0 complet 017 mmol/L ed Bld-sCn 21:42 c Ca-I SerPl ISE-sCnc (10-25-2016 21:42) Ca-I 4.1 4.6-5.1 complet SerPl 017 mg/dL ed ISE-sCn 21:42 c Lactate Bld-sCnc (10-25-2016 21:42) Lactate DUP complet 017 DUPLICA ed Bld-sCn 21:42 TE c ORDER,C REDITED L mmol/L Bacteria Ur Cult (10-25-2016 20:32) Bacteri [id number] complet a XXX 017 07 ed Anaerob [...] Bacteria XXX Anaerobe+Aerobe Cult (10-25-2016 17:49) Bacteri [id number] complet a XXX 017 06 No ed Anaerob 17:49 growth e+Aerob (qualif e Cult ier value) SCT NGB5 NO GROWTH DAY 4. L Bacteria XXX Anaerobe+Aerobe Cult (10-25-2016 17:10) Bacteri [id number] complet a XXX 017 06 No ed [...] complet BldC 017 mg/dL ed Glucomt 07:57 r-[facility] Bas Metab 1999 Pnl SerPl (09-23-2016 20:31) Glucose 143 70-130 complet BldC 017 mg/dL ed Glucomt 20:31 r-[facility] Bas Metab 1999 Pnl SerPl (09-23-2016 16:00) Glucose 143 70-130 complet BldC 017 mg/dL ed [facility] (09-23-2016 14:05) INR PPP 2.67 complet 017 ed 14:05 Prothro 30.0 9.6-11. complet mbin 017 Seconds 5 ed time 14:05 Bas Metab 1999 Pnl SerPl (09-23-2016 12:10) Glucose 98 70-130 complet BldC 017 mg/dL ed Glucomt 12:10 [facility] Bas Metab 1999 Pnl SerPl (09-23-2016 08:42) Glucose 99 70-130 complet BldC 017 mg/dL ed Glucomt 08:42 [facility] Renal Func 1999 Pnl SerPl (09-23-2016 07:28) [...] complet BldC 017 mg/dL ed Glucomt 19:50 [facility] Bas Metab 2000 Pnl SerPl (09-22-2016 17:31) Glucose 193 70-130 complet BldC 017 mg/dL ed Glucomt 17:31 r-[facility] Bas Metab 1999 Pnl SerPl (09-22-2016 12:05) Glucose 117 70-130 complet BldC 017 mg/dL ed Glucomt 12:05 [facility] Bas Metab 1999 Pnl SerPl (09-22-2016 08:33) Glucose 107 70-130 complet BldC 017 mg/dL ed Glucomt 08:33 [facility] Prothrombin time (09-22-2016 07:40) INR PPP 2.13 complet 017 ed 07:40 Prothro 23.8 9.6-11. complet mbin 017 Seconds 5 ed time 07:40 Bas Metab 1999 Pnl SerPl (09-21-2016 19:23) Glucose 140 70-130 complet BldC 017 mg/dL ed Glucomt 19:23 [facility] Bas Metab 1999 Pnl SerPl (09-21-2016 16:23) Glucose 09-21- 126 70-130 complet BldC 017 mg/dL ed Glucomt 16:23 [facility] Hepatitis A+B+C 7a Pnl Ser (09-21-2016 13:28) HCV Ab [id number] Non-Su complet Ser 017 07 ctive ed Donr Ql 13:28 Non-Su ctive SCT HBV [id number] Non-[place] complet core 017 07 ctive ed IgM 13:28 Non-[place] SerPl ctive Ql IA SCT HAV IgM [id number] Non-Su complet SerPl 017 07 ctive ed Ql IA 13:28 Non-[place] ctive SCT HBV [id number] Non-[place] complet surface 017 07 ctive ed Ag 13:28 Non-Su SerPl ctive Ql IA SCT Bas Metab 1999 Pnl SerPl (09-21-2016 11:38) Glucose 124 70-130 complet BldC 017 mg/dL ed Glucomt 11:38 r-[facility] Bas Metab 1999 Pnl SerPl (09-21-2016 07:35) Glucose 95 70-130 complet BldC 017 mg/dL ed Glucomt 07:35 r[facility] Renal Func 1999 Pnl SerPl (09-21-2016 03:47) [...] complet BldC 017 mg/dL ed Glucomt 11:35 r-[facility] Bas Metab 1999 Pnl SerPl (09-20-2016 07:50) [...] Stl Ql PCR (09-18-2016 20:59) C dif [id number] Negativ complet Tox 017 01 e ed [...] 1 ed SerPl-m 06:25 Cnc Glucose BldC [facility] (05-02-2013 19:21) Glucose 214 70-110 complet BldC 014 mg/dl ed Glucomt 19:21 [facility] Gl[facility]ld[facility] (05-02-2013 16:32) Glucose 205 70-110 complet BldC 014 mg/dl ed Glucomt 16:32 r[facility] BASIC METABOLIC PANEL (05-02-2013 16:30) Glucose 194 [...] 014 mg/dL 1 ed SerPl-m 16:30 [facility] Glucose dC [facility]tr[facility] (05-02-2013 11:59) Glucose 246 70-110 complet BldC 014 mg/dl ed Glucomt 11:59 [facility] Glucose dC [facility]tr[facility] (05-02-2013 06:41) Glucose 204 70-110 complet BldC 014 mg/dl ed Glucomt 06:41 [facility] LIPID PROFILE (05-02-2013 06:30) Cholest 192 Less [...] K/MM3 ed Bld 06:30 Auto Glucose BldC [facility] (05-01-2013 21:11) Glucose 244 70-110 complet BldC 014 mg/dl ed Glucomt 21:11 r-[facility] Glucose BldC [facility] (05-01-2013 16:44) Glucose 202 70-110 complet BldC 014 mg/dl ed Glucomt 16:44 r-[facility] Glucose BldC [facility] (05-01-2013 11:33) Glucose 218 70-110 complet BldC 014 mg/dl ed Glucomt 11:33 r-[facility] BASIC METABOLIC PANEL (05-01-2013 06:45) Glucose 176 [...] K/MM3 ed Bld 06:45 Auto Glucose BldC [facility] (05-01-2013 06:09) Glucose 166 70-110 complet BldC 014 mg/dl ed [facility]comt 06:09 [facility]IC MET[facility]OLIC PANEL (04-30-2013 14:25) Glucose 176 [...] Ren MD (IN) 4 12:40 4 11:15 [facility] Emergency MACK Lanier MD (ER) 4 15:04 4 15:37 [facility]
--- OUTSIDE RECORDS SUMMARY | 2017-02-08 19:54 | External Medical Summary Rpt | CCD ---
Demographics Preferred Language Greenlandic Marital Status Unknown Protestant Affiliation Unknown Race Unknown Ethnic Group Unknown Author Author , KATRIN WILKES Address Unknown Phone Immunization Unable to retrieve immunization data due to connection failure with Immunization Registry. Please try again later.
--- OUTSIDE RECORDS SUMMARY | 2017-02-08 19:54 | External Medical Summary Rpt | CCD ---
Author Author [employer] Organization Con[employer] Address Unknown Phone Unavailable Purpose Continuity of Care Document - through 2016
--- OUTSIDE RECORDS SUMMARY | 2017-02-08 19:54 | External Medical Summary Rpt | CCD ---
Demographics Preferred Language Serbian Marital Status Unknown Episcopal Affiliation Unknown Race Unknown Ethnic Group Unknown Author Author , KATRIN WILKES Address Unknown Phone Immunization Unable to retrieve immunization data due to connection failure with Immunization Registry. Please try again later.
--- OUTSIDE RECORDS SUMMARY | 2017-02-08 19:56 | External Medical Summary Rpt ---
Author Author KATRIN Francesca, [employer] Organization [employer] Address Unknown Phone Unavailable Results INR in Blood by Coagulation assay Observa Value Referen Units Interpr Notes Date tion ce etation Range INR in 0.9 - 1.1 No High Feb 01 Blood by informati NOTIFICAT 2016 Coagulati on in [place] 11:55 AM on assay source RESULT data INDIC ATION INR RANGETHER APY FOR DVT, PE, ATRIAL FIB; 2.0 - 3.0PROPHY LAXIS FOR VTETHERAP Y FOR MECHANICA L HEART 2.5 - 3.5VALVE; PREVENTIO N OF SYSTEMICE MBOLISM SECONDARY TO AMI Prothromb 9.4 - SECONDS High Feb 01 in time 11.8 NOTIFICAT 2017 (PT) in ION 11:55 AM Platelet RESULT poor plasma by Coagulati on assay INR in Blood by Coagulation assay Observa Value Referen Units Interpr Notes Date tion ce etation Range INR in 0.9 - 1.1 No High Results Feb 01 Blood by informati sent to: 2016 Coagulati on in [facility] [place] 10:30 AM on assay source Nadiya ALVAREZ 02/01/17 [id number] C chaves mmy Pharmacis t recommend ation for Warfarint herapy is: PATIENT INR 4.9 TODAY VIA FINGERSTI CK. INR WAS5.02 TODAY VIA VENIPUNCT URE. RECOMMEND ED PATIENT HOLD DOSEX3 DAYS, THEN RESUME TUESDAY AT WARFARIN 1.5 MG ON TUE/TUE;3 MG ON TUE/SUN. WILL FOLLOW UP ON TUESDAY.* FOR DETAILED INFORMATI ON-PLEASE REVIEW PROGRESS NOTEI N THE ASSESSMEN TS AND ANTICOAGU LATION CLINIC SECTIONAN TICOAGULA TION CLINIC IN PCI/CLINI JESSE REVIEWIND ICATION INR RANGETHER APY FOR DVT, PE, ATRIAL FIB; 2.0 - 3.0PROPHY LAXIS FOR VTETHERAP Y FOR MECHANICA L HEART 2.5 - 3.5VALVE; PREVENTIO N OF SYSTEMICE MBOLISM SECONDARY TO AMI INR in Blood by Coagulation assay Observa Value Referen Units Interpr Notes Date tion ce etation Range INR in 0.9 - 1.1 No High Results Jan 6 Blood by informati sent to: 2016 Coagulati on in [facility] [place] 11:30 AM on assay source Nadiya ALVAREZ 01/07/17 [id number] Janelle anne Pharmacis t recommend ation for Warfarint herapy is: INR BY FINGERSTI CK IS 3.1 TODAY. RECOMMEND 1.5MG FRIDAYS; 3 MG TUE/TUE/ U/TUE/ U/SAT. FOLLOW-UP IN 02/03 WEEKS. *FOR DETAILED INFORMATI ON-PLEASE REVIEW PROGRESS NOTEI N THE ASSESSMEN TS AND ANTICOAGU LATION CLINIC SECTIONAN TICOAGULA TION CLINIC IN PCI/CLINI JESSE REVIEWIND ICATION INR RANGETHER APY FOR DVT, PE, ATRIAL FIB; 2.0 - 3.0PROPHY LAXIS FOR VTETHERAP Y FOR MECHANICA L HEART 2.5 - 3.5VALVE; PREVENTIO N OF SYSTEMICE MBOLISM SECONDARY TO AMI INR in Blood by Coagulation assay Observa Value Referen Units Interpr Notes Date tion ce etation Range INR in 0.9 - 1.1 No High Results Jan 04 Blood by informati sent to: 2016 Coagulati on in [facility] [place] 10:45 AM on assay source Nadiya ALVAREZ 01/04/17 1202Blank prosper,Ji mmy Pharmacis t recommend ation for Warfarint herapy is: PATIENT INR 2.6 TODAY VIA FINGERSTI CK. PATIENTHA S BEEN HOLDING DOSE SINCE 12/31. PATIENT WAS TAKINGWAR FARIN 5 MG DAILY INSTEAD OF PRESCRIBE D WARFARIN 3 MGDAILY. PATIENT IS NOW AWARE OF ISSUE. WILL HAVE PATIENTTA KE WARFARIN 3 MG DAILY UNTIL FOLLOW UP ON TUESDAY [facility]. FOR DETAILED INFORMATI ON-PLEASE REVIEW PROGRESS NOTEI N THE ASSESSMEN TS AND ANTICOAGU LATION CLINIC SECTIONAN TICOAGULA TION CLINIC IN PCI/CLINI JESSE REVIEWIND ICATION INR RANGETHER APY FOR DVT, PE, ATRIAL FIB; 2.0 - 3.0PROPHY LAXIS FOR VTETHERAP Y FOR MECHANICA L HEART 2.5 - 3.5VALVE; PREVENTIO N OF SYSTEMICE MBOLISM SECONDARY TO AMI INR in Blood by Coagulation assay Observa Value Referen Units Interpr Notes Date tion ce etation Range INR in 0.9 - 1.1 No High Results Dec 31 Blood by informati sent to: 2017 Coagulati on in [facility] 11:00 AM on assay source AGER TENDER, data Ernie 12/31/16 1121Blank enship,Julio C mmy Pharmacis t recommend ation for Warfarint herapy is:PATIEN T INR 5.11 TODAY VIA VENIPUNCT URE AND 5.5TODAY VIA FINGERSTI CK INR. PATIENT HAD BEEN TAKING WARFARIN5 MG DAILY INSTEAD OF WARFARIN 3 MG. CONTINUE HOLDING DOSEUNTIL TUES. FOR DETAILED INFORMATI ON-PLEASE REVIEW PROGRESS NOTEI N THE ASSESSMEN TS AND ANTICOAGU LATION CLINIC SECTIONAN TICOAGULA TION CLINIC IN PCI/CLINI JESSE REVIEWIND ICATION INR RANGETHER APY FOR DVT, PE, ATRIAL FIB; 2.0 - 3.0PROPHY LAXIS FOR VTETHERAP Y FOR MECHANICA L HEART 2.5 - 3.5VALVE; PREVENTIO N OF SYSTEMICE MBOLISM SECONDARY TO AMI INR in Blood by Coagulation assay Observa Value Referen Units Interpr Notes Date tion ce etation Range INR in 0.9 - 1.1 No High Dec 31 Blood by informati NOTIFICAT 2016 9:19 Coagulati on in I[place] AM on assay source RESULT data INDIC ATION INR RANGETHER APY FOR DVT, PE, ATRIAL FIB; 2.0 - 3.0PROPHY LAXIS FOR VTETHERAP Y FOR MECHANICA L HEART 2.5 - 3.5VALVE; PREVENTIO N OF SYSTEMICE MBOLISM SECONDARY TO AMI Prothromb 9.4 - SECONDS High Dec 31 in time 11.8 NOTIFICAT 2016 9:19 (PT) in ION AM Platelet RESULT poor plasma by Coagulati on assay INR in Blood by Coagulation assay Observa Value Referen Units Interpr Notes Date tion ce etation Range INR in 0.9 - 1.1 No High Dec 28 Blood by informati NOTIFICAT 2016 Coagulati on in [place] 11:18 AM on assay source RESULT data 12/28 1149 Howard Mahoney neINDICAT ION INR RANGETHER APY FOR DVT, PE, ATRIAL FIB; 2.0 - 3.0PROPHY LAXIS FOR VTETHERAP Y FOR MECHANICA L HEART 2.5 - 3.5VALVE; PREVENTIO N OF SYSTEMICE MBOLISM SECONDARY TO AMI Prothromb 9.4 - SECONDS High Dec 28 in time 11.8 NOTIFICAT 2017 (PT) in ION 11:18 AM Platelet RESULT poor 12/28 plasma by 1149 Hung CoagulHoward dias on assay ne INR in Blood by Coagulation assay Observa Value Referen Units Interpr Notes Date tion ce etation Range INR in 0.9 - 1.1 No High Results Dec 15 Blood by informati sent to: 2016 Coagulati on in [facility] 11:30 AM on assay source AGER TENDER, data Eugonda 12/17/16 1351Blank enswanda,Julio C mmy Pharmacis t recommend ation for Warfarint herapy is: PATIENT INR 2.3 TODAY VIA FINGERSTI CK.RECOMM ENDED PATIENT RESTART WITH WARFARIN 3 MG DAILY ATTHIS TIME. WILL FOLLOW UP IN 9 DAYS. FOR DETAILED INFORMATI ON-PLEASE REVIEW PROGRESS NOTEI N THE ASSESSMEN TS AND ANTICOAGU LATION CLINIC SECTIONAN TICOAGULA TION CLINIC IN PCI/CLINI JESSE REVIEWIND ICATION INR RANGETHER APY FOR DVT, PE, ATRIAL FIB; 2.0 - 3.0PROPHY LAXIS FOR VTETHERAP Y FOR MECHANICA L HEART 2.5 - 3.5VALVE; PREVENTIO N OF SYSTEMICE MBOLISM SECONDARY TO AMI INR in Blood by Coagulation assay Observa Value Referen Units Interpr Notes Date tion ce etation Range CALL [facility](PHARMACY) WITH RESULTS INR in 0.9 - 1.1 No High INDICATIO Sep 13 Blood by informati N 2016 Coagulati on in 10:34 AM on assay source INR data RANGETHER APY FOR DVT, PE, ATRIAL FIB; 2.0 - 3.0PROPHY LAXIS FOR VTETHERAP Y FOR MECHANICA L HEART 2.5 - 3.5VALVE; PREVENTIO N OF SYSTEMICE MBOLISM SECONDARY TO AMI Prothromb 9.4 - SECONDS High No Sep 13 in time 11.8 informati 2017 (PT) in on in 10:34 AM Platelet source poor data plasma by Coagulati on assay INR in Blood by Coagulation assay Observa Value Referen Units Interpr Notes Date tion ce etation Range INR in 0.9 - 1.1 No High Results Sep 13 Blood by informati sent to: 2016 Coagulati on in [facility] 10:30 AM on assay source AGER TENDER, elan Eugonda 12/15/16 [id number] enshipJulio C mmsteven Pharmacis t recommend ation for Warfarint herapy is: PATIENT INR 3.9 TODAY VIA FINGERSTI CK. PATIENTIN R 3.57 VIA VENIPUNCT URE. RECOMMEND ED PATIENT CONTINUE TOHOLD WARFARIN UNTIL FOLLOW UP ON TUESDAY. IT APPEARSPA HCERYL'S HAD ACCIDENTL Y BEEN GIVING HER WARFARINQ AM PRESCRIBE D AND ALSO IN THE EVENING. HE WAS MISTAKING THE LOPERAMID E TABLETS TO WARFARIN TABLETS. CAUTIONED PATIENT AND SPOUSE ABOUT THIS. FOR DETAILED INFORMATI ON-PLEASE REVIEW PROGRESS NOTEI N THE ASSESSMEN TS AND ANTICOAGU LATION CLINIC SECTIONAN TICOAGULA TION CLINIC IN PCI/CLINI JESSE REVIEWIND ICATION INR RANGETHER APY FOR DVT, PE, ATRIAL FIB; 2.0 - 3.0PROPHY LAXIS FOR VTETHERAP Y FOR MECHANICA L HEART 2.5 - 3.5VALVE; PREVENTIO N OF SYSTEMICE MBOLISM SECONDARY TO AMI INR in Blood by Coagulation assay Observa Value Referen Units Interpr Notes Date tion ce etation Range INR in 0.9 - 1.1 No High Results Sep 7 Blood by informati sent to: 2017 Coagulati on in [place] 11:15 AM on assay source Nadiya ALVAREZ data l Michael 12/09/16 1347Blank enshipJi mmsteven Pharmacis t recommend ation for Warfarint herapy is: PATIENT INR 5.9 TODAY VIA FINGERSTI CK. INR5.69 TODAY VIA VENIPUNCT URE. PATIENT INDICATED SHE HADBEEN TAKING 3 MG DAILY SINCE LAST TUESDAY INSTEAD OFRECOMME NDED WARFARIN 1.5 MG ON MON/FRI; 3 MG ONSUN/TUE /TUE/TUE/ TUE. CAUTIONED PATIENT ABOUT THIS. HAVINGPAT IENT HOLD DOSE OF WARFARIN UNTIL FOLLOW UP ON TUESDAY .PATIENT NOT HAVING ANY PROBLEMS WITH BLEEDING/ BRUISING ATTHIS TIME. FOR DETAILED INFORMATI ON-PLEASE REVIEW PROGRESS NOTEI N THE ASSESSMEN TS AND ANTICOAGU LATION CLINIC [facility] TION CLINIC IN PCI/CLINI JESSE REVIEWIND ICATION INR RANGETHER APY FOR DVT, PE, ATRIAL FIB; 2.0 - 3.0PROPHY LAXIS FOR VTETHERAP Y FOR MECHANICA L HEART 2.5 - 3.5VALVE; PREVENTIO N OF SYSTEMICE MBOLISM SECONDARY TO AMI INR in Blood by Coagulation assay Observa Value Referen Units Interpr Notes Date tion ce etation Range INR in 0.9 - 1.1 No High Dec 09 Blood by informati NOTIFICAT 2016 Coagulati on in [place] 11:15 AM on assay source RESULT data INDIC ATION INR RANGETHER APY FOR DVT, PE, ATRIAL FIB; 2.0 - 3.0PROPHY LAXIS FOR VTETHERAP Y FOR MECHANICA L HEART 2.5 - 3.5VALVE; PREVENTIO N OF SYSTEMICE MBOLISM SECONDARY TO AMI Prothromb 9.4 - SECONDS High Dec 09 in time 11.8 NOTIFICAT 2016 (PT) in ION 11:15 AM Platelet RESULT poor plasma by Coagulati on assay INR in Blood by Coagulation assay Observa Value Referen Units Interpr Notes Date tion ce etation Range INR in 0.9 - 1.1 No High Results Dec 01 Blood by informati sent to: 2016 Coagulati on in [facility] 12:00 PM on assay source Nadiya ALVAREZ 12/01/16 1604Blank Julio C cheng mmy Pharmacis t recommend ation for Warfarint herapy is: PATIENT INR 3.4 TODAY VIA FINGERSTI CK. PATIENTIN R 2.88 TODAY VIA VENIPUNCT URE. RECOMMEND ED PATIENT TAKEWARFA RIN 1.5 MG ON MON/FRI; 3 MG ON TUE/TUE/ ED/TUE/ T.PATIENT HAS BEEN TAKING WARFARIN 3 MG DAILY INSTEAD OF THEREPORT ED 10 MG DAILY. WILL FOLLOW UP NEXT WEEK. FOR DETAILED INFORMATI ON-PLEASE REVIEW PROGRESS NOTEI N THE ASSESSMEN TS AND ANTICOAGU LATION CLINIC SECTIONAN TICOAGULA TION CLINIC IN PCI/CLINI JESSE REVIEWIND ICATION INR RANGETHER APY FOR DVT, PE, ATRIAL FIB; 2.0 - 3.0PROPHY LAXIS FOR VTETHERAP Y FOR MECHANICA L HEART 2.5 - 3.5VALVE; PREVENTIO N OF SYSTEMICE MBOLISM SECONDARY TO AMI INR in Blood by Coagulation assay Observa Value Referen Units Interpr Notes Date tion ce etation Range INR in 0.9 - 1.1 No High INDICATIO Dec 01 Blood by informati N 2016 9:41 Coagulati on in AM on assay source INR data RANGETHER APY FOR DVT, PE, ATRIAL FIB; 2.0 - 3.0PROPHY LAXIS FOR VTETHERAP Y FOR MECHANICA L HEART 2.5 - 3.5VALVE; PREVENTIO N OF SYSTEMICE MBOLISM SECONDARY TO AMI Prothromb 9.4 - SECONDS High No Dec 01 in time 11.8 informati 2016 9:41 (PT) in on in AM Platelet source poor data plasma by Coagulati on assay INR in Blood by Coagulation assay Observa Value Referen Units Interpr Notes Date tion ce etation Range INR in 0.9 - 1.1 No High Results Nov 29 Blood by informati sent to: 2016 Coagulati on in [facility] 10:15 AM on assay source UCHE, data Eugonda 11/29/16 1214Blank Julio C cheng mmy Pharmacis t recommend ation for Warfarint herapy is: PATIENT INR 3.7 TODAY VIA FINGERSTI CK.RECOMM ENDED PATIENT HOLD WARFARIN DOSE UNTIL FOLLOW UP ONWEDNES AY. INR SLOWLY DECREASIN G WITH HOLDING DOSES FROMINR 5.0 ON TUESDAY. FOR DETAILED INFORMATI ON-PLEASE REVIEW PROGRESS NOTEI N THE ASSESSMEN TS AND ANTICOAGU LATION CLINIC SECTIONAN TICOAGULA TION CLINIC IN PCI/CLINI JESSE REVIEWIND ICATION INR RANGETHER APY FOR DVT, PE, ATRIAL FIB; 2.0 - 3.0PROPHY LAXIS FOR VTETHERAP Y FOR MECHANICA L HEART 2.5 - 3.5VALVE; PREVENTIO N OF SYSTEMICE MBOLISM SECONDARY TO AMI Comprehensive metabolic 2000 panel in Serum or Plasma Observa Value Referen Units Interpr Notes Date tion ce etation Range Albumin/G 1.1 - 1.8 No Low No Nov 26 lobulin informati informati 2016 9:28 [Mass on in on in AM ratio] in source source Serum or data data Plasma Albumin 3.4 - 5.0 gm/dL Low No Nov 26 [Mass/vol informati 2016 9:28 ume] in on in AM Serum or source Plasma data Alkaline 46 - 116 U/L High No Nov 26 phosphata informati 2016 9:28 se on in AM [Enzymati source c data activity/ volume] in Serum or Plasma Bilirubin 0.2 - 1.0 mg/dL Normal No Nov 26 .total informati 2016 9:28 [Mass/vol on in AM ume] in source Serum or data Plasma Urea 7 - 18 mg/dL High No Nov 26 nitrogen informati 2016 9:28 [Mass/vol on in AM ume] in source Serum or data Plasma Calcium 8.5 - mg/dL Low No Nov 26 [Mass/vol 10.1 informati 2016 9:28 ume] in on in AM Serum or source Plasma data Chloride 98 - 107 mmoL/L Normal No Nov 26 [Moles/vo informati 2016 9:28 lume] in on in AM Serum or source Plasma data Carbon 21.0 - mmoL/L Normal No Nov 26 dioxide, 32.0 informati 2016 9:28 total on in AM [Moles/vo source lume] in data Serum or Plasma Creatinin 0.55 - mg/dL High No Nov 26 e 1.02 informati 2016 9:28 [Mass/vol on in AM ume] in source Serum or data Plasma Estimated 59- ML/MIN Low alert REFERENCE Nov 26 RANGE: 2016 9:28 glomerula >60 AM r ML/MIN/1. filtratio 73 SQUARE n rate METERSIf (GF this patient is -A merican, then multiply theresult by 1.210. Globulin 1.3 - 3.2 gm/dL High No Nov 26 [Mass/vol informati 2016 9:28 ume] in on in AM Serum source data Glucose 74 - 106 mg/dL High No Nov 26 [Mass/vol informati 2016 9:28 ume] in on in AM Serum or source Plasma data Potassium 3.5 - 5.1 mmoL/L Low No Nov 26 informati 2016 9:28 [Moles/vo on in AM lume] in source Serum or data Plasma Sodium 136 - 145 mmoL/L Normal No Nov 26 [Moles/vo informati 2017 9:28 lume] in on in AM Serum or source Plasma data Aspartate 15 - 37 U/L Low No Nov 26 informati 2017 9:28 aminotran on in AM sferase source [Enzymati data c activity/ volume] in Serum or Plasma Alanine 12 - 78 U/L Low No Nov 26 aminotran informati 2016 9:28 sferase on in AM [Enzymati source c data activity/ volume] in Serum or Plasma Protein 6.4 - 8.2 gm/dL Normal No Nov 26 [Mass/vol informati 2017 9:28 ume] in on in AM Serum or source Plasma data Thyroxine (T4) free [Mass/volume] in Serum or Plasma Observa Value Referen Units Interpr Notes Date tion ce etation Range Thyroxine 0.76 - ng/dL Normal No Nov 26 (T4) 1.46 informati 2017 9:28 free on in AM [Mass/vol source ume] in data Serum or Plasma Lipid 1996 panel in Serum or Plasma Observa Value Referen Units Interpr Notes Date tion ce etation Range Cholester < 200 mg/dL No No Nov 26 ol informati informati 2017 9:28 [Moles/vo on in on in AM lume] in source source Unspecifi data data ed specimen Cholester 40 - 60 MG/DL Normal No Nov 26 ol in HDL informati 2017 9:28 on in AM [Mass/vol source ume] in data Serum or Plasma Cholester 0 - 130 mg/dL Normal No Nov 26 ol in LDL informati 2017 9:28 on in AM [Mass/vol source ume] in data Serum or Plasma by calcjosiahti on Triglycer 30 - 200 mg/dL Normal No Nov 26 sweetie informati 2017 9:28 [Moles/vo on in AM lume] in source Serum or data Plasma Cholester 0 - 40 No Normal No Nov 26 ol in informati informati 2017 9:28 VLDL on in on in AM [Mass/vol source source ume] in data data Serum or Plasma Thyrotropin [Units/volume] in Serum or Plasma Observa Value Referen Units Interpr Notes Date tion ce etation Range Thyrotrop 0.358 - uIU/ml High No Nov 26 in 3.740 informati 2017 9:28 [Units/vo on in AM lume] in source Serum or data Plasma CBC W Auto Differential panel in Blood Observa Value Referen Units Interpr Notes Date tion ce etation Range Basophils 0 - 0.2 K/MM3 Normal No Nov 26 informati 2016 9:28 [#/volume on in AM ] in source Blood by data Automated count Basophils 0.1 - 2.0 % Normal No Nov 26 /100 informati 2016 9:28 leukocyte on in AM s in source Blood by data Automated count Eosinophi 0.0 - 0.4 K/mm3 Normal No Nov 26 ls informati 2016 9:28 [#/volume on in AM ] in source Blood by data Automated count Eosinophi 0.1 - % Normal No Nov 26 ls/100 12.0 informati 2016 9:28 leukocyte on in AM s in source Blood by data Automated count Granulocy 1.8 - 7.8 K/mm3 Normal No Nov 26 brian informati 2016 9:28 [#/volume on in AM ] in source Blood by data Automated count Granulocy 37.0 - % Normal No Nov 26 brian/100 80.0 informati 2016 9:28 leukocyte on in AM s in source Blood by data Automated count Hematocri 37.0 - % Low No Nov 26 t [Volume 47.0 informati 2016 9:28 on in AM Fraction] source of Blood data Hemoglobi 12.2 - g/dL Low No Nov 26 n 16.2 informati 2016 9:28 [Mass/vol on in AM ume] in source Blood data Lymphocyt 0.7 - 4.5 K/mm3 Normal No Nov 26 es informati 2016 9:28 [#/volume on in AM ] in source Unspecifi data ed specimen by Automated count Lymphocyt 10 - 50.0 % Normal No Nov 26 es informati 2016 9:28 [#/volume on in AM ] in source Unspecifi data ed specimen by Automated count Erythrocy 27 - 31.2 pg Normal No Nov 26 te mean informati 2017 9:28 corpuscul on in AM ar source hemoglobi data n [Entitic mass] Erythrocy 31.8 - g/dl Low No Nov 26 te mean 35.4 informati 2016 9:28 corpuscul on in AM ar source hemoglobi data n concentra tion [Mass/vol ume] by Automated count Erythrocy 82.2 - fl Normal No Nov 26 te mean 97.8 informati 2016 9:28 corpuscul on in AM ar volume source [Entitic data volume] by Automated count Monocytes 0.1 - 1.0 K/mm3 Normal No Nov 26 informati 2016 9:28 [#/volume on in AM ] in source Blood by data Automated count Monocytes 1.7 - 9.3 % Normal No Nov 26 /100 informati 2016 9:28 leukocyte on in AM s in source Blood by data Automated count Platelet 7.4 - fl Normal No Nov 26 mean 10.4 informati 2016 9:28 volume on in AM [Entitic source volume] data in Blood by Automated count Platelets 142 - 424 K/mm3 High No Nov 26 informati 2016 9:28 [#/volume on in AM ] in source Blood data Erythrocy 4.2 - 5.4 M/mm3 Low No Nov 26 brian informati 2016 9:28 [#/volume on in AM ] in source Amniotic data fluid Erythrocy 11.5 - % Normal Nov 26 te 17.5 informati 2016 9:28 distribut on in AM ion width source [Entitic data volume] by Automated count Leukocyte 4.8 - K/MM3 Low No Nov 26 s 10.8 informati 2016 9:28 [#/volume on in AM ] in source Blood data INR in Blood by Coagulation assay Observa Value Referen Units Interpr Notes Date tion ce etation Range INR in 0.9 - 1.1 No High Nov 26 Blood by informati NOTIFICAT 2016 9:28 Coagulati on in ION AM on assay source RESULT data INDIC ATION INR RANGETHER APY FOR DVT, PE, ATRIAL FIB; 2.0 - 3.0PROPHY LAXIS FOR VTETHERAP Y FOR MECHANICA L HEART 2.5 - 3.5VALVE; PREVENTIO N OF SYSTEMICE MBOLISM SECONDARY TO AMI Prothromb 9.4 - SECONDS High Nov 26 in time 11.8 NOTIFICAT 2016 9:28 (PT) in ION AM Platelet RESULT poor plasma by Coagulati on assay Hemoglobin A1c in Blood Observa Value Referen Units Interpr Notes Date tion ce etation Range Hemoglo 5.7 0.0 - % Normal < 6% Nov 26 bin A1c 7.0 NON-RANDALL 2017 in BETIC 9:28 AM Blood LEVEL< 7% CONTROL LED DIABETI C LEVEL> 8% POORLY CONTROL LED DIABETI C LEVEL INR in Blood by Coagulation assay Observa Value Referen Units Interpr Notes Date tion ce etation Range INR in 0.9 - 1.1 No High INDICATIO Nov 01 Blood by informati N 2017 Coagulati on in 11:25 AM on assay source INR data RANGETHER APY FOR DVT, PE, ATRIAL FIB; 2.0 - 3.0PROPHY LAXIS FOR VTETHERAP Y FOR MECHANICA L HEART 2.5 - 3.5VALVE; PREVENTIO N OF SYSTEMICE MBOLISM SECONDARY TO AMI Prothromb 9.4 - SECONDS High No Nov 01 in time 11.8 inform2016 (PT) in on in 11:25 AM Platelet source poor data plasma by Coagulati on assay CBC W Auto Differential panel in Blood Observa Value Referen Units Interpr Notes Date tion ce etation Range Basophils 0 - 0.2 K/MM3 Normal No Oct 25 inform2016 2:15 [#/volume on in PM ] in source Blood by data Automated count Basophils 0.1 - 2.0 % Normal No Oct 25 informati 2016 2:15 leukocyte on in PM s in source Blood by data Automated count Eosinophi 0.0 - 0.4 K/mm3 Normal No Oct 25 ls informati 2016 2:15 [#/volume on in PM ] in source Blood by data Automated count Eosinophi 0.1 - % Normal No Oct 25 ls/100 12.0 informati 2016 2:15 leukocyte on in PM s in source Blood by data Automated count Granulocy 1.8 - 7.8 K/mm3 High No Oct 25 brian informati 2016 2:15 [#/volume on in PM ] in source Blood by data Automated count Granulocy 37.0 - % High No Oct 25 brian/100 80.0 informati 2016 2:15 leukocyte on in PM s in source Blood by data Automated count Hematocri 37.0 - % Low No Oct 25 t [Volume 47.0 informati 2016 2:15 on in PM Fraction] source of Blood data Hemoglobi 12.2 - g/dL Low No Oct 25 n 16.2 informati 2016 2:15 [Mass/vol on in PM ume] in source Blood data Lymphocyt 0.7 - 4.5 K/mm3 Normal No Oct 25 es informati 2016 2:15 [#/volume on in PM ] in source Unspecifi data ed specimen by Automated count Lymphocyt 10 - 50.0 % Low No Oct 25 es informati 2016 2:15 [#/volume on in PM ] in source Unspecifi data ed specimen by Automated count Erythrocy 27 - 31.2 pg Normal No Oct 25 te mean inform2016 2:15 corpuscul on in PM ar source hemoglobi data n [Entitic mass] Erythrocy 31.8 - g/dl Low No Oct 25 te mean 35.4 informati 2016 2:15 corpuscul on in PM ar source hemoglobi data n concentra tion [Mass/vol ume] by Automated count Erythrocy 82.2 - fl Normal No Oct 25 te mean 97.8 informati 2016 2:15 corpuscul on in PM ar volume source [Entitic data volume] by Automated count Monocytes 0.1 - 1.0 K/mm3 Normal No Oct 25 informati 2016 2:15 [#/volume on in PM ] in source Blood by data Automated count Monocytes 1.7 - 9.3 % Normal No Oct 25 /100 informati 2017 2:15 leukocyte on in PM s in source Blood by data Automated count Platelet 7.4 - fl Normal No Oct 25 mean 10.4 informati 2016 2:15 volume on in PM [Entitic source volume] data in Blood by Automated count Platelets 142 - 424 K/mm3 Normal No Oct 25 informati 2016 2:15 [#/volume on in PM ] in source Blood data Erythrocy 4.2 - 5.4 M/mm3 Low No Oct 25 brian informati 2016 2:15 [#/volume on in PM ] in source Amniotic data fluid Erythrocy 11.5 - % Normal No Oct 25 te 17.5 informati 2016 2:15 distribut on in PM ion width source [Entitic data volume] by Automated count Leukocyte 4.8 - K/MM3 High No Oct 25 s 10.8 informati 2016 2:15 [#/volume on in PM ] in source Blood data Differential panel, method unspecified - Observa Value Referen Units Interpr Notes Date tion ce etation Range Anisocy 2+ No No No No Oct 25 tosis informa informa informa informa 2016 [Presen tion in tion in tion in tion in 2:15 PM ce] in source source source source Blood data data data data Basophils 0 - 1 % Normal No Oct 25 inform2016 2:15 leukocyte on in PM s in source Blood by data Automated count LYMPH 8 10 - 50 % Low No Oct 25 inform2016 tion in 2:15 PM source data Monocytes 2 - 9 % Normal No Oct 25 inform2016 2:15 leukocyte on in PM s in source Blood by data Automated count Platele NORMAL No No No No Oct 25 ts informa informa informa informa 2016 [Presen tion in tion in tion in tion in 2:15 PM ce] in source source source source Blood data data data data by Light microsc opy Neutrophi 42 - 76 % High No Oct 25 ls informati 2016 2:15 [#/volume on in PM ] in source Blood by data Automated count Stomato 1+ No No No No Oct 25 cytes informa informa informa informa 2016 [Presen tion in tion in tion in tion in 2:15 PM ce] in source source source source Blood data data data data by Light microsc opy Cells No #CELLS No No Oct 25 Counted informati informati informati 2016 2:15 Total [#] on in on in on in PM in Blood source source source data data data INR in Blood by Coagulation assay Observa Value Referen Units Interpr Notes Date tion ce etation Range IS PATIENT ON ANTICOAGULANTS? Y LIST ANTICOAGULANTS: WARFARIN INR in 0.9 - 1.1 No High INDICATIO Oct 25 Blood by informati N 2016 2:15 Coagulati on in PM on assay source INR data RANGETHER APY FOR DVT, PE, ATRIAL FIB; 2.0 - 3.0PROPHY LAXIS FOR VTETHERAP Y FOR MECHANICA L HEART 2.5 - 3.5VALVE; PREVENTIO N OF SYSTEMICE MBOLISM SECONDARY TO AMI Prothromb 9.4 - SECONDS High No Oct 25 in time 11.8 informati 2016 2:15 (PT) in on in PM Platelet source poor data plasma by Coagulati on assay Creatine kinase.MB [Mass/volume] in Serum or Plasma Observa Value Referen Units Interpr Notes Date tion ce etation Range Creatine 0.0 - 3.6 ng/mL Normal No Oct 25 kinase.MB informati 2016 2:15 on in PM [Mass/vol source ume] in data Serum or Plasma Comprehensive metabolic 2000 panel in Serum or Plasma Observa Value Referen Units Interpr Notes Date tion ce etation Range Albumin/G 1.1 - 1.8 No Low No Oct 25 lobulin informati informati 2017 2:15 [Mass on in on in PM ratio] in source source Serum or data data Plasma Albumin 3.4 - 5.0 gm/dL Low No Oct 25 [Mass/vol informati 2017 2:15 ume] in on in PM Serum or source Plasma data Alkaline 46 - 116 U/L High No Oct 25 phosphata informati 2017 2:15 se on in PM [Enzymati source c data activity/ volume] in Serum or Plasma Bilirubin 0.2 - 1.0 mg/dL Normal No Oct 25 .total informati 2016 2:15 [Mass/vol on in PM ume] in source Serum or data Plasma Urea 7 - 18 mg/dL High No Oct 25 nitrogen informati 2016 2:15 [Mass/vol on in PM ume] in source Serum or data Plasma Calcium 8.5 - mg/dL Low No Oct 25 [Mass/vol 10.1 informati 2017 2:15 ume] in on in PM Serum or source Plasma data Chloride 98 - 107 mmoL/L Normal No Oct 25 [Moles/vo informati 2016 2:15 lume] in on in PM Serum or source Plasma data Carbon 21.0 - mmoL/L Normal No Oct 25 dioxide, 32.0 informati 2016 2:15 total on in PM [Moles/vo source lume] in data Serum or Plasma Creatinin 0.55 - mg/dL High No Oct 25 e 1.02 informati 2016 2:15 [Mass/vol on in PM ume] in source Serum or data Plasma Creatinin 50 - 200 ML/MIN Low No Oct 25 e renal informati 2016 2:15 clearance on in PM source predicted data by Cockcroft -Gault formula Estimated 59- ML/MIN Low alert REFERENCE Oct 25 RANGE: 2017 2:15 glomerula >60 PM r ML/MIN/1. filtratio 73 SQUARE n rate METERSIf (GF this patient is -A merican, then multiply theresult by 1.210. Globulin 1.3 - 3.2 gm/dL High No Oct 25 [Mass/vol informati 2016 2:15 ume] in on in PM Serum source data Glucose 74 - 106 mg/dL High No Oct 25 [Mass/vol informati 2017 2:15 ume] in on in PM Serum or source Plasma data Potassium 3.5 - 5.1 mmoL/L Normal No Oct 25 inform2016 2:15 [Moles/vo on in PM lume] in source Serum or data Plasma Sodium 136 - 145 mmoL/L Normal No Oct 25 [Moles/vo informati 2016 2:15 lume] in on in PM Serum or source Plasma data Aspartate 15 - 37 U/L Normal No Oct 25 inform2016 2:15 aminotran on in PM sferase source [Enzymati data c activity/ volume] in Serum or Plasma Alanine 12 - 78 U/L Low No Oct 25 aminotran informati 2016 2:15 sferase on in PM [Enzymati source c data activity/ volume] in Serum or Plasma Protein 6.4 - 8.2 gm/dL Normal No Oct 25 [Mass/vol informati 2016 2:15 ume] in on in PM Serum or source Plasma data Creatine kinase [Enzymatic activity/volume] in Serum or Plasma Observa Value Referen Units Interpr Notes Date ti ce etation Range Creatine 26 - 192 U/L Normal No Oct 25 kinase informati 2016 2:15 [Enzymati on in PM c source activity/ data volume] in Serum or Plasma Troponin I.cardiac [Mass/volume] in Serum or Plasma Observa Value Referen Units Interpr Notes Date ti ce etation Range Troponin 0.00 - ng/mL High Oct 25 I.cardiac 0.06 2016 2:15 CRITICAL PM [Mass/vol RESULTS ume] in Serum or RESU Plasma LTS CALLED TO: JOE 10/25/16 1451 Cracraft, Yudelka> 0.5 IS CONSISTEN T WITH MYOCARDIA L ISCHEMIA OR INFARCTIO N Comprehensive metabolic 2000 panel in Serum or Plasma Observa Value Referen Units Interpr Notes Date tion ce etation Range Albumin/G 1.1 - 1.8 No Low No Oct 11 lobulin informati informati 2016 [Mass on in on in 11:15 PM ratio] in source source Serum or data data Plasma Albumin 3.4 - 5.0 gm/dL Low No Oct 11 [Mass/vol informati 2016 ume] in on in 11:15 PM Serum or source Plasma data Alkaline 46 - 116 U/L High No Oct 11 phosphata informati 2017 se on in 11:15 PM [Enzymati source c data activity/ volume] in Serum or Plasma Bilirubin 0.2 - 1.0 mg/dL Normal No Oct 11 .total informati 2016 [Mass/vol on in 11:15 PM ume] in source Serum or data Plasma Urea 7 - 18 mg/dL Normal No Oct 11 nitrogen informati 2016 [Mass/vol on in 11:15 PM ume] in source Serum or data Plasma Calcium 8.5 - mg/dL Normal No Oct 11 [Mass/vol 10.1 informati 2016 ume] in on in 11:15 PM Serum or source Plasma data Chloride 98 - 107 mmoL/L Normal No Oct 11 [Moles/vo informati 2017 lume] in on in 11:15 PM Serum or source Plasma data Carbon 21.0 - mmoL/L Normal No Oct 11 dioxide, 32.0 informati 2017 total on in 11:15 PM [Moles/vo source lume] in data Serum or Plasma Creatinin 0.55 - mg/dL High No Oct 11 e 1.02 informati 2016 [Mass/vol on in 11:15 PM ume] in source Serum or data Plasma Creatinin 50 - 200 ML/MIN Low No Oct 11 e renal informati 2017 clearance on in 11:15 PM source predicted data by Cockcroft -Gault formula Estimated 59- ML/MIN Low alert REFERENCE Oct 11 RANGE: 2017 glomerula >60 11:15 PM r ML/MIN/1. filtratio 73 SQUARE n rate METERSIf (GF this patient is -A merican, then multiply theresult by 1.210. Globulin 1.3 - 3.2 gm/dL High No Oct 11 [Mass/vol informati 2017 ume] in on in 11:15 PM Serum source data Glucose 74 - 106 mg/dL High No Oct 11 [Mass/vol informati 2017 ume] in on in 11:15 PM Serum or source Plasma data Potassium 3.5 - 5.1 mmoL/L Normal No Oct 11 informati 2017 [Moles/vo on in 11:15 PM lume] in source Serum or data Plasma Sodium 136 - 145 mmoL/L Normal No Oct 11 [Moles/vo informati 2017 lume] in on in 11:15 PM Serum or source Plasma data Aspartate 15 - 37 U/L Normal No Oct 112016 aminotran on in 11:15 PM sferase source [Enzymati data c activity/ volume] in Serum or Plasma Alanine 12 - 78 U/L Normal No Oct 11 aminotran 2016 sferase on in 11:15 PM [Enzymati source c data activity/ volume] in Serum or Plasma Protein 6.4 - 8.2 gm/dL No No Oct 11 [Mass/vol informati informati 2016 ume] in on in on in 11:15 PM Serum or source source Plasma data data Troponin I.cardiac [Mass/volume] in Serum or Plasma Observa Value Referen Units Interpr Notes Date tion ce etation Range Troponin 0.00 - ng/mL Normal No Oct 11 I.cardiac 0.06 2016 on in 11:15 PM [Mass/vol source ume] in data Serum or Plasma Lactate [Moles/volume] in Blood Observa Value Referen Units Interpr Notes Date tion ce etation Range Lactate 0.4 - 2.0 mmol/L Normal No Oct 11 [Moles/vo ati 2016 lume] in on in 11:15 PM Blood source data CBC W Auto Differential panel in Blood Observa Value Referen Units Interpr Notes Date tion ce etation Range Basophils 0 - 0.2 K/MM3 Normal No Oct 112016 [#/volume on in 11:15 PM ] in source Blood by data Automated count Basophils 0.1 - 2.0 % Normal No Oct 112016 leukocyte on in 11:15 PM s in source Blood by data Automated count Eosinophi 0.0 - 0.4 K/mm3 Normal No Oct 11 ls 2016 [#/volume on in 11:15 PM ] in source Blood by data Automated count Eosinophi 0.1 - % Normal No Oct 11 ls/100 12.0 2016 leukocyte on in 11:15 PM s in source Blood by data Automated count Granulocy 1.8 - 7.8 K/mm3 Normal No Oct 11 brian 2016 [#/volume on in 11:15 PM ] in source Blood by data Automated count Granulocy 37.0 - % Normal No Oct 11 brian/100 80.0 2016 leukocyte on in 11:15 PM s in source Blood by data Automated count Hematocri 37.0 - % Low No Oct 11 t [Volume 47.0 2016 on in 11:15 PM Fraction] source of Blood data Hemoglobi 12.2 - g/dL Low No Oct 11 n 16.2 inform2016 [Mass/vol on in 11:15 PM ume] in source Blood data Lymphocyt 0.7 - 4.5 K/mm3 Normal No Oct 11 es 2016 [#/volume on in 11:15 PM ] in source Unspecifi data ed specimen by Automated count Lymphocyt 10 - 50.0 % Normal No Oct 11 es inform2016 [#/volume on in 11:15 PM ] in source Unspecifi data ed specimen by Automated count Erythrocy 27 - 31.2 pg Low No Oct 11 te mean 2016 corpuscul on in 11:15 PM ar source hemoglobi data n [Entitic mass] Erythrocy 31.8 - g/dl Low No Oct 11 te mean 35.4 2016 corpuscul on in 11:15 PM ar source hemoglobi data n concentra tion [Mass/vol ume] by Automated count Erythrocy 82.2 - fl Normal No Oct 11 te mean 97.8 2016 corpuscul on in 11:15 PM ar volume source [Entitic data volume] by Automated count Monocytes 0.1 - 1.0 K/mm3 Normal No Oct 112016 [#/volume on in 11:15 PM ] in source Blood by data Automated count Monocytes 1.7 - 9.3 % Normal No Oct 10 /100 2016 leukocyte on in 11:15 PM s in source Blood by data Automated count Platelet 7.4 - fl Low No Oct 11 mean 10.4 2016 volume on in 11:15 PM [Entitic source volume] data in Blood by Automated count Platelets 142 - 424 K/mm3 No No Oct 11 informati informati 2016 [#/volume on in on in 11:15 PM ] in source source Blood data data Erythrocy 4.2 - 5.4 M/mm3 Low No Oct 11 brian ati 2016 [#/volume on in 11:15 PM ] in source Amniotic data fluid Erythrocy 11.5 - % Normal No Oct 11 te 17.5 2016 distribut on in 11:15 PM ion width source [Entitic data volume] by Automated count Leukocyte 4.8 - K/MM3 Low No Oct 11 s 10.8 informati 2017 [#/volume on in 11:15 PM ] in source Blood data
--- OUTSIDE RECORDS SUMMARY | 2017-02-08 19:56 | External Medical Summary Rpt ---
Author Author [employer] Francesca, [employer] Address Unknown Phone Unavailable [...] informati sent to: 2016 Coagulati on in [facility] 10:30 AM on assay source Nadiya ALVAREZ [...] informati sent to: 2016 Coagulati on in [facility] 11:30 AM on assay source Nadiya ALVAREZ [...] informati sent to: 2016 Coagulati on in [facility] 10:45 AM on assay source Nadiya ALVAREZ [...] MG DAILY UNTIL FOLLOW UP ON TUESDAY [facility]. FOR DETAILED INFORMATI ON-PLEASE REVIEW PROGRESS [...] informati sent to: 2017 Coagulati on in [facility] 11:00 AM on assay source GYM MANAGER, data Ernie 12/31/16 1121Blank enship,Julio C mmy [...] informati sent to: 2016 Coagulati on in [facility] 11:30 AM on assay source GYM MANAGER, data Eugonda 12/17/16 1351Blank enswanda,Julio C mmy [...] informati sent to: 2016 Coagulati on in [facility] 10:30 AM on assay source GYM MANAGER, elan Eugonda 12/15/16 [id number] enshipJulio C mmsteven Pharmacis t recommend ation for Warfarint herapy is: PATIENT INR 3.9 TODAY VIA FINGERSTI CK. PATIENTIN R 3.57 VIA VENIPUNCT URE. RECOMMEND ED PATIENT CONTINUE TOHOLD WARFARIN UNTIL FOLLOW UP ON TUESDAY. IT APPEARSPA CHERYL'S HAD ACCIDENTL Y BEEN GIVING HER WARFARINQ [...] THE ASSESSMEN TS [facility] TION CLINIC IN PCI/CLINI JESSE REVIEWIND ICATION [...] informati sent to: 2016 Coagulati on in [facility] 12:00 PM on assay source Nadiya ALVAREZ [...] informati sent to: 2016 Coagulati on in [facility] 10:15 AM on assay source UCHE, data [...]
--- NOTE | 2017-02-08 21:30 | Emergency Room Report ---
History of Present Illness Time Seen by 1999 Presenting Problem in Triage Pt arrived:Wheelchair Presenting Problem:S/P FALL BETWEEN WALL AND TOILET. 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 N Clinical Suspician of Infection? N Mental Status: 1 - Regular (Normal Baseline) Sepsis Risk:Possible Sepsis Risk Have you (or family members/close friends) recently traveled outside the [place]? N If Yes, where/when: Have you had exposure to infectious disease within the past month? N TB? Other? Specify: Source patient, RN notes reviewed, family, old records Exam Limitations no limitations Comment slip type fall today with lt rib pain and abd pain lt side with no loc- pt with esrd on dialysis Cardiac Chest Pain Chest pain indicative of cardiac No Timing/Duration this evening Severity moderate ALLERGIES Coded Allergies: Penicillins (BLACKS OUT 01/13/16) butorphanol (BLACKS OUT 01/13/16) Home Medications Reported Medications Gabapentin (Neurontin 300MG) 300 MG PO BID WARFARIN SOD (Warfarin 5MG) 3 MG PO DAILY Insulin Lispro (Humalog Kwikpen) 100 UNIT SQ BID PRN SUGAR #12 History Medical History General CAD? Yes Angina: No IA: No Hypertension? Yes Hyperlipidemia? Yes CHF? Yes DVT? Yes PE? Yes COPD? No Asthma? Yes Anemia? No GERD? No Gastric ulcers? No GI Bleed? Yes Hernia? No Thyroid Problems? Yes Hypothyroidism? Yes CVA? Yes Seizures? No Diabetes? Yes Insulin Dependent: Yes Insulin Pump: No Home FSBS? Yes Renal Insuffiency? Yes End Stage Renal Disease? No UTI? Yes Stones? No GB Disease: No Nephritic Syndrome? No Asplenia? No Hepatitis? No Sickle Cell Disease? No Arthritis? Yes Migraines? Yes Cataracts? No Glaucoma? No MRSA? No HIV? No TB? No Anxiety? No Depression? No Cancer? No More? Yes Additional hx: Gout GINO intolerant to CPAP Gout Diabetic neuropathy RENAL DIALYSIS Immunization Hx DT/Tetanus 1-4 YRS Flu Refused Pneumonia Received In Past Surgical Hx Previous Surgery?Y APPY TUBAL LIGATION CYST REMOVED FROM ARM TONSILLECTOMY DIALYSIS PORT Family History Family Hx Diabetes Yes CAD Yes Hypertension Yes Hyperlipidemia Yes Cancer Yes TB No Social History Smoking Hx Smoker: Former Smoker Tobacco: No Packs/day N/A Alcohol Alcohol: No Drugs none Review of Systems All Other Systems Reviewed and Negative Constitutional denies fever Eyes denies drainage ENT denies: ear pain, epistaxis, throat pain. Respiratory see HPI, denies cough, denies shortness of breath, denies wheezing, other Cardiovascular see HPI, denies chest pain, denies palpitations, denies syncope Gastrointestinal see HPI, abdominal pain, denies nausea, denies vomiting Genitourinary denies: dysuria, frequency, hesitancy, hematuria. Musculoskeletal denies back pain, denies joint pain, denies joint swelling, denies neck pain Skin denies rash Psychiatric/Neurological denies headache, denies seizure Physical Exam Vital Signs Vital Signs Date Time Temp Pulse Resp B/P Pulse O2 O2 Flow FiO2 Ox Delivery Rate 02/08 2214 98.7 90 22 149/72 99 02/08 2100 97.0 91 20 142/100 99 02/08 1940 97.1 93 20 142/71 99 - WBC >12,000 or <4,000 or 10% bands? 2 or more SIRS Criteria Met? B/P:149/72 MAP:94 Creatinine >2.0? UA output<0.5ml/kg/hr for 2 hrs? Platelet count >100,000? Lactate >2.0mmol/1? INR >1.2 or PTT > than 60 sec? Evidence of Organ Dysfunction? Provider documented clinical suspician of infection? N Sepsis Criteria Count: 2 Sepsis Risk: Possible Sepsis Risk General Appearance no apparent distress Eye Exam - bilateral eye PERRL, bilateral eye EOMI Ear, Nose, Throat normal ENT inspection Neck non-tender Respiratory Status Yes: tender on palpation. No: respiratory distress. Lung Sounds left: decreased breath sounds. 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 No Results/Orders Orders Procedure Date/time Status DIET-NOTHING BY MOUTH 02/[address] ABD & PELVIS W/O CONTRAST 02/[address] ABD/PELVIS REQ 02/09 2108 Complete [id number] VIEWS 02/08 1950 Active XRAY/CT/US XRAY/CT/US 1 XRAY rib XR interpretation by reviewed by me Xray Results abnormal (rib fx ) XRAY/CT/US 2 CT abdomen, pelvis CT interpretation by discussed w/radiologist Time results known: 2233 CT Results abnormal (see report) Departure Departure Time of Disposition 2225 Disposition DC Home or Self Care(routine) Clinical Impression Primary Impression: Left rib fracture Qualifiers: Encounter type: initial encounter Rib fracture type: single rib Fracture type: closed Qualified Code: S22.32XA - Fracture of one rib, left side, initial encounter for closed fracture Condition STABLE Referrals rEnie Rivera APRN (Family) Patient Instructions DI for Rib Fracture Additional Instructions keep appt about coumadin and call pcp for follow up Discharge Counseling Counseled pt/family regarding diagnosis, test results, medications/RX, follow up needs ED Critical Care Critical Care No at 2237
--- NOTE | 2017-02-08 21:30 | Emergency Room Report ---
History of Present Illness Time Seen by 1999 Presenting Problem in Triage Pt arrived:Wheelchair Presenting Problem:S/P FALL BETWEEN WALL AND TOILET. 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 N Clinical Suspician of Infection? N Mental Status: 1 - Regular (Normal Baseline) Sepsis Risk:Possible Sepsis Risk Have you (or family members/close friends) recently traveled outside the [place]? N If Yes, where/when: Have you had exposure to infectious disease within the past month? N TB? Other? Specify: Source patient, RN notes reviewed, family, old records Exam Limitations no limitations Comment slip type fall today with lt rib pain and abd pain lt side with no loc- pt with esrd on dialysis Cardiac Chest Pain Chest pain indicative of cardiac No Timing/Duration this evening Severity moderate ALLERGIES Coded Allergies: Penicillins (BLACKS OUT 01/13/16) butorphanol (BLACKS OUT 01/13/16) Home Medications Reported Medications Gabapentin (Neurontin 300MG) 300 MG PO BID WARFARIN SOD (Warfarin 5MG) 3 MG PO DAILY Insulin Lispro (Humalog Kwikpen) 100 UNIT SQ BID PRN SUGAR #12 History Medical History General CAD? Yes Angina: No OR: No Hypertension? Yes Hyperlipidemia? Yes CHF? Yes DVT? Yes PE? Yes COPD? No Asthma? Yes Anemia? No GERD? No Gastric ulcers? No GI Bleed? Yes Hernia? No Thyroid Problems? Yes Hypothyroidism? Yes CVA? Yes Seizures? No Diabetes? Yes Insulin Dependent: Yes Insulin Pump: No Home FSBS? Yes Renal Insuffiency? Yes End Stage Renal Disease? No UTI? Yes Stones? No GB Disease: No Nephritic Syndrome? No Asplenia? No Hepatitis? No Sickle Cell Disease? No Arthritis? Yes Migraines? Yes Cataracts? No Glaucoma? No MRSA? No HIV? No TB? No Anxiety? No Depression? No Cancer? No More? Yes Additional hx: Gout GINO intolerant to CPAP Gout Diabetic neuropathy RENAL DIALYSIS Immunization Hx DT/Tetanus 1-4 YRS Flu Refused Pneumonia Received In Past Surgical Hx Previous Surgery?Y APPY TUBAL LIGATION CYST REMOVED FROM ARM TONSILLECTOMY DIALYSIS PORT Family History Family Hx Diabetes Yes CAD Yes Hypertension Yes Hyperlipidemia Yes Cancer Yes TB No Social History Smoking Hx Smoker: Former Smoker Tobacco: No Packs/day N/A Alcohol Alcohol: No Drugs none Review of Systems All Other Systems Reviewed and Negative Constitutional denies fever Eyes denies drainage ENT denies: ear pain, epistaxis, throat pain. Respiratory see HPI, denies cough, denies shortness of breath, denies wheezing, other Cardiovascular see HPI, denies chest pain, denies palpitations, denies syncope Gastrointestinal see HPI, abdominal pain, denies nausea, denies vomiting Genitourinary denies: dysuria, frequency, hesitancy, hematuria. Musculoskeletal denies back pain, denies joint pain, denies joint swelling, denies neck pain Skin denies rash Psychiatric/Neurological denies headache, denies seizure Physical Exam Vital Signs Vital Signs Date Time Temp Pulse Resp B/P Pulse O2 O2 Flow FiO2 Ox Delivery Rate 02/08 2214 98.7 90 22 149/72 99 02/08 2100 97.0 91 20 142/100 99 02/08 1940 97.1 93 20 142/71 99 - WBC >12,000 or <4,000 or 10% bands? 2 or more SIRS Criteria Met? B/P:149/72 MAP:94 Creatinine >2.0? UA output<0.5ml/kg/hr for 2 hrs? Platelet count >100,000? Lactate >2.0mmol/1? INR >1.2 or PTT > than 60 sec? Evidence of Organ Dysfunction? Provider documented clinical suspician of infection? N Sepsis Criteria Count: 2 Sepsis Risk: Possible Sepsis Risk General Appearance no apparent distress Eye Exam - bilateral eye PERRL, bilateral eye EOMI Ear, Nose, Throat normal ENT inspection Neck non-tender Respiratory Status Yes: tender on palpation. No: respiratory distress. Lung Sounds left: decreased breath sounds. 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 No Results/Orders Orders Procedure Date/time Status DIET-NOTHING BY MOUTH 02/[address] ABD & PELVIS W/O CONTRAST 02/[address] ABD/PELVIS REQ 02/09 2108 Complete [id number] VIEWS 02/08 1950 Active XRAY/CT/US XRAY/CT/US 1 XRAY rib XR interpretation by reviewed by me Xray Results abnormal (rib fx ) XRAY/CT/US 2 CT abdomen, pelvis CT interpretation by discussed w/radiologist Time results known: 2233 CT Results abnormal (see report) Departure Departure Time of Disposition 2225 Disposition DC Home or Self Care(routine) Clinical Impression Primary Impression: Left rib fracture Qualifiers: Encounter type: initial encounter Rib fracture type: single rib Fracture type: closed Qualified Code: S22.32XA - Fracture of one rib, left side, initial encounter for closed fracture Condition STABLE Referrals Ernie Rivera APRN (Family) Patient Instructions DI for Rib Fracture Additional Instructions keep appt about coumadin and call pcp for follow up Discharge Counseling Counseled pt/family regarding diagnosis, test results, medications/RX, follow up needs ED Critical Care Critical Care No at 2231
[2017-02-08 22:39] VITALS: BP 149/72
--- NOTE | 2017-02-09 04:32 | RADIOLOGY REPORT PS360 ---
[id number] VIEWS HISTORY: S/P FALL LEFT RIB PAIN ORDERING PHYSICIAN: Tobi Ramirez MD PATIENT AGE: 66 years COMPARISON: None FINDINGS: A frontal view of the chest shows cardiomegaly with mild pulmonary venous congestion. Right IJ vas catheter is in place with the tip in region of the SVC. Nondisplaced fracture involves the lateral aspect of left ninth rib. IMPRESSION: 1. Nondisplaced left ninth rib fracture. 2. Cardiomegaly with CHF/plasma volume overload.
--- NOTE | 2017-02-09 05:38 | RADIOLOGY REPORT PS360 ---
CT ABD PELVIS W/O CONTRAST CLINICAL INDICATION: Abdominal pain following injury, blunt abdominal trauma with left upper quadrant pain FALL ORDERING PHYSICIAN: Chico Ren MD PATIENT AGE: 66 years COMPARISON: 06/14/2016 TECHNIQUE: Axial images obtained with sagittal and coronal reformats. PROCEDURE: Oral Contrast: None IV Contrast: None . FINDINGS: There is a small right pleural effusion and trace left pleural effusion with some groundglass opacity in the lung bases which may be due to edema. Atelectasis/consolidation right lung base. There is a small right pleural effusion and trace left pleural effusion. Mild cardiomegaly. Small amount of perihepatic fluid. No focal liver lesion evident. The gallbladder is slightly distended with some hyperdensity inferiorly which may be due to stones or sludge. Unremarkable appearing spleen. The adrenal glands are unremarkable. No acute finding of the pancreas. There is gas present within the urinary bladder with mild thickening of the urinary bladder. There is a small amount of gas present within the left renal pelvis and upper pole calyces and within the left ureter. There is mild ectasia of both kidneys and ureters. Senescent calcifications are present within the uterus. A small focus of gas is present within the endometrial canal superiorly and within the vagina. There is mild amount retained colonic feces in the rectum and there is mild stranding in the perirectal presacral fat. There is nondisplaced left 10th rib fracture anteriorly. IMPRESSION: 1. Nondisplaced left 10th rib fracture. 2. There is air within the urinary collecting system as described above which could be due to recent intervention, gas forming infection, or enterovesicular fistula. 3. Thickened urinary bladder consistent with cystitis. 4. Cholelithiasis and sludge with distended gallbladder 5. Bilat. pleural effusions and a small amount of ascites with suspected CHF or pulmonary edema
== END 2017-02-08 22:42 | disposition home or self-care (01) ==
LOC: ER 19:35
DX: S22.32XA Fracture of one rib, left side, initial encounter for closed fracture (principal); Y92.029 Unspecified place in mobile home as the place of occurrence of the external cause; N18.6 End stage renal disease; Z99.2 Dependence on renal dialysis; W01.0XXA Fall on same level from slipping, tripping and stumbling without subsequent striking against object, initial encounter

== ENCOUNTER → 2017-02-10 | Outpatient (CLI) | payer MEDICARE, MEDICAID ==
[~2017-02-10] MED LIST changes: +HUMALOG KW100 UNIT/1 SQ
== END ==
LOC: ACC 08:15
DX: I82.409 Acute embolism and thrombosis of unspecified deep veins of unspecified lower extremity (principal); Z79.01 Long term (current) use of anticoagulants; Z51.81 Encounter for therapeutic drug level monitoring
CPT/HCPCS: G0463

== ENCOUNTER 2017-02-25 13:26 | Emergency (ER) | payer MEDICARE, MEDICAID ==
[~2017-02-25] VITALS: Ht 165.1 cm; Wt 63.5 kg
--- OUTSIDE RECORDS SUMMARY | 2017-02-25 13:37 | External Medical Summary Rpt | CCD ---
Author Author , [facility] Organization [facility] Address Unknown Phone [email or web address] Care Team Providers Care Inspector Open Die Name Role Phone Leonidas Lanier MD, Unavailable Unavailable Leonidas Ren Unavailable Unavailable , Sanjeev Ren MD Purpose Continuity of Care Document - 04-26-2013 through 2016 Problems Code Diagnosis DOS Provider Status D68.9 COAGULATION 01-18-2017 DEFECT, UNSPECIFIED E11.22 TYPE 2 01-18-2017 DIABETES MELLITUS WITH DIABETIC CHRONIC KIDNEY DISEASE G62.9 POLYNEUROPA 01-18-2017 THY, UNSPECIFIED I12.0 HYPERTENSIV 01-18-2017 E CHRONIC KIDNEY DISEASE WITH STAGE 5 CHRONIC KIDNEY DISEASE OR END STAGE RENAL DISEASE 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20 Unspecified 11-04-2016 Escherichia coli [E. 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 mellitus with diabetic nephropathy E11.40 Type 2 11-04-2016 diabetes mellitus with diabetic neuropathy, unspecified E46 Unspecified 11-04-2016 protein-deuce orie malnutritio n E66.9 Obesity, 11-04-2016 unspecified E78.5 Hyperlipide 11-04-2016 dominique, unspecified E87.2 Acidosis 11-04-2016 G82.20 Paraplegia, 11-04-2016 unspecified I13.2 Hypertensiv 11-04-2016 e heart and chronic kidney disease with heart failure and with stage 5 chronic kidney disease, or end stage renal disease I21.4 Non-ST 11-04-2016 elevation (NSTEMI) myocardial infarction I27.2 Other 11-04-2016 secondary pulmonary hypertensio n I36.1 Nonrheumati 11-04-2016 c tricuspid (valve) insufficien cy I50.9 Heart 11-04-2016 failure, unspecified I69.898 Other 11-04-2016 sequelae of other cerebrovasc ular disease I77.1 Stricture 11-04-2016 of artery I82.411 Acute 11-04-2016 embolism and thrombosis of right femoral vein 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 J90 Pleural 11-04-2016 effusion, not elsewhere classified N12 Tubulo-inte 11-04-2016 rstitial nephritis, not specified as acute or chronic N39.0 Urinary 11-04-2016 tract infection, site not specified R32 Unspecified 11-04-2016 urinary incontinenc e R65.21 Severe 11-04-2016 sepsis with septic shock Z68.41 Body mass 11-04-2016 index (BMI) 40.0-44.9, adult Z91.19 Patient's 11-04-2016 noncomplian ce with other medical treatment and regimen 250.60 250.60 DIAB 05-03-2013 Pan Andrew NEURO [facility] MANIFEST, Hospital TYPE II OR UNSPEC TYPE, NOT UNCNTRLD 250.70 250.70 DIAB 05-03-2013 Pan Andrew [facility] CIRC DIS, Hospital TYPE II OR UNSPEC TYPE, NOT UNCNTRLD 357.2 357.2 05-03-2013 Pan [facility] IN DIABETES Hospital 403.90 403.90 05-03-2013 Pan HYPTNSV CHR [facility] KID DIS, Hospital UNSPEC, W CHR KD STAGE I-IV OR UNSP 493.90 493.90 05-03-2013 Pan ASTHMA, [facility] UNSPECIFIED Hospital 585.9 585.9 05-03-2013 Pan CHRONIC [facility] KIDNEY Hospital DISEASE, UNSPECIFIED 785.4 785.4 05-03-2013 Pan GANGRENE [facility] V12.54 V12.54 05-03-2013 Pan PERSONAL HX [facility] TIA AND Hospital 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 V58.61 V58.61 05-03-2013 Pan ANTICOAGULA [facility] NTS,LT,CURR Hospital ENT USE V58.67 V58.67 05-03-2013 Pan LONG-TERM [facility] (CURRENT) Hospital USE OF INSULIN 250.81 250.81 DIAB 04-26-2013 Pan Andrew OTH SPEC [facility] MANIFEST, Hospital TYPE I [JUVENILE TYPE], NOT UNCNTR 401.9 401.9 04-26-2013 Pan HYPERTENSIO [facility] N NOS Hospital 707.15 707.15 04-26-2013 Pan ULCER OF [facility] OTHER PART Hospital OF FOOT E11.9 TYPE 2 DIABETES MELLITUS WITHOUT COMPLICATIO NS E86.0 DEHYDRATION I95.9 HYPOTENSION , UNSPECIFIED J20.8 ACUTE BRONCHITIS DUE TO OTHER SPECIFIED ORGANISMS K80.20 CALCULUS OF GALLBLADDER W/O CHOLECYSTIT IS W/O OBSTRUCTION N18.9 CHRONIC KIDNEY DISEASE, UNSPECIFIED N28.9 DISORDER OF KIDNEY AND URETER, UNSPECIFIED R07.9 CHEST PAIN, UNSPECIFIED R53.1 WEAKNESS R55 Syncope and collapse S22.32XA FRACTURE OF ONE RIB, LEFT SIDE, INIT FOR CLOS FX Allergies, Adverse Reactions, Alerts Type Drug Allergy [...] 51 01 0 No TO 07 -3 UT 90 0- Lo OL 80 20 ng OL 12 14 er 0 TA Ac RT ti RA ve TE 50 MG TA B SP 46 01 0 No S 28 -2 15 70 9- Lo 00 20 ng GM 66 14 er /6 0 0 Ac ML ti ve HERNANDEZ SP EN SI ON ME 51 01 0 No TO 07 -2 UT 90 9- Lo OL 25 20 ng OL 52 14 er 0 TA Ac RT ti RA ve TE 25 MG TA B 16 01 1 No PI 10 -2 RI 30 9- Lo N 35 20 ng EC 60 14 er 9 81 Ac ti MG ve TA BL ET UT 51 01 1 No AV 07 -2 [...] 51 01 1 No TO 07 -2 UT 90 8- Lo OL 25 20 ng OL 52 14 er 0 TA Ac RT ti RA ve TE 25 MG TA B FU 51 01 2 No RO 07 -2 SE 90 8- Lo WA 07 20 ng DE 22 14 er [...] SI 73 -2 NO 90 7- Lo UT 34 20 ng IL 91 14 er [...] RO 40 -2 SE 96 7- Lo WA 10 20 ng DE 20 14 er [...] t Range on Whole blood INR measurement (02-22-2017 11:40) Prothro = 59.6 9.4-11. complet mbin 017 SECONDS 8 ed time 11:40 (PT) in platele t poor p Comment: NOTIFICATION RESULT Whole = 5.42 0.9-1.1 complet blood 017 ed INR 11:40 measure ment Comment: NOTIFICATION RESULT Comment: INDICATION INR RANGE Comment: Comment: THERAPY FOR DVT, PE, ATRIAL FIB; 2.0 - 3.0 Comment: PROPHYLAXIS FOR VTE Comment: Comment: THERAPY FOR MECHANICAL HEART 2.5 - 3.5 Comment: VALVE; PREVENTION OF SYSTEMIC Comment: EMBOLISM SECONDARY TO AMI Whole blood INR measurement (02-22-2017 11:00) Whole = 5.4 0.9-1.1 complet blood 017 ed INR 11:00 measure ment Comment: Comment: Results sent to: ALIYA GARCIA DPM 02/22/17 9924 Comment: Og Wei Pharmacist recommendation for Warfarin Comment: therapy is: PATIENT INR 5.4 TODAY VIA FINGERSTICK. Comment: VENIPUNCTURE INR WAS 5.42 TODAY. RECOMMENDED PATIENT HOLD Comment: DOSE OF WARFARIN FOR 3 DAYS, THEN RESTART WITH REDUCED DOSE Comment: OF WARFARIN 3 MG ON TUE; 1.5 MG ON TUE/TUE. WILL FOLLOW UP Comment: ON TUESDAY. Comment: Comment: FOR DETAILED INFORMATION-PLEASE REVIEW PROGRESS NOTE Comment: IN THE ASSESSMENTS AND ANTICOAGULATION CLINIC SECTION Comment: ANTICOAGULATION CLINIC IN PCI/CLINICAL REVIEW Comment: INDICATION INR RANGE Comment: Comment: THERAPY FOR DVT, PE, ATRIAL FIB; 2.0 - 3.0 Comment: PROPHYLAXIS FOR VTE Comment: Comment: THERAPY FOR MECHANICAL HEART 2.5 - 3.5 Comment: VALVE; PREVENTION OF SYSTEMIC Comment: EMBOLISM SECONDARY TO AMI Whole blood INR measurement (02-10-2017 08:45) Whole = 2.3 0.9-1.1 complet blood 017 ed INR 08:45 measure ment Comment: Comment: Results sent to: Ernie Rivera APRN 02/10/17 0942 Comment: Og Wei Pharmacist recommendation for Warfarin Comment: therapy is: PATIENT INR 2.3 TODAY VIA FINGERSTICK. Comment: RECOMMENDED PATIENT CONTINUE WITH WARFARIN 1.5 MG ON Comment: TUE/TUE; 3 MG ON TUE/TUE/TUE/TUE/TUE. WILL FOLLOW PATIENT Comment: NEXT WEEK DUE TO ELEVATED INR ON 02/01. Comment: Comment: FOR DETAILED INFORMATION-PLEASE REVIEW PROGRESS NOTE Comment: IN THE ASSESSMENTS AND ANTICOAGULATION CLINIC SECTION Comment: ANTICOAGULATION CLINIC IN PCI/CLINICAL REVIEW Comment: INDICATION INR RANGE Comment: Comment: THERAPY FOR DVT, PE, ATRIAL FIB; 2.0 - 3.0 Comment: PROPHYLAXIS FOR VTE Comment: Comment: THERAPY FOR MECHANICAL HEART 2.5 - 3.5 Comment: VALVE; PREVENTION OF SYSTEMIC Comment: EMBOLISM SECONDARY TO AMI Whole blood INR measurement (02-01-2017 11:55) Prothro = 55.2 9.4-11. complet mbin 017 SECONDS 8 ed time 11:55 (PT) in platele t poor p Whole = 5.03 0.9-1.1 complet blood 017 ed INR 11:55 measure ment Whole blood INR measurement (02-01-2017 10:30) Whole = 5.0 0.9-1.1 complet blood 017 ed INR 10:30 measure ment Phosphate SerPl-mCnc (10-30-2016 06:17) Phospha 4.4 2.5-4.5 complet te 017 mg/dL ed SerPl-m 06:17 Cnc Magnesium SerPl-mCnc (10-30-2016 06:17) Magnesi 2 1.9 1.9-2.4 complet um 017 mg/dL ed SerPl-m 06:17 Cnc Phosphate SerPl-mCnc (10-28-2016 02:36) Phospha 5.5 2.5-4.5 complet te 017 mg/dL ed SerPl-m 02:36 Cnc Magnesium SerPl-mCnc (10-28-2016 02:36) Magnesi 10-28-2 2.1 1.9-2.4 complet um 017 mg/dL ed SerPl-m 02:36 Cnc Cortis SerPl-mCnc (10-27-2016 12:14) Cortis 2 23.0 complet SerPl-m 017 ug/dL ed Cnc 12:14 Cortis SerPl-mCnc (10-27-2016 11:44) Cortis 2 22.2 complet SerPl-m 017 ug/dL ed Cnc 11:44 Lactate Bld-sCnc (10-27-2016 11:10) Lactate 1.8 complet 017 mmol/L ed Bld-sCn 11:10 c Cortis SerPl-mCnc (10-27-2016 10:55) Cortis 15.5 complet SerPl-m 017 ug/dL ed Cnc 10:55 Vancomycin SerPl-mCnc (10-27-2016 02:04) Vancomy 18.9 0-40.0 complet isai 017 ug/mL ed SerPl-m 02:04 Cnc MDRO Wnd (10-26-2016 19:22) Bacteri [id number] complet a XXX 017 00 not ed [...] E ed SerPl-m 22:22 E L Cnc NT-proBNP SerPl-mCnc (10-25-2016 22:22) NT-proB [id number] 0-899 complet BRAND COORDINATOR 017 pg/mL ed SerPl-m 22:22 Cnc Cortis SerPl-mCnc (10-25-2016 22:22) Cortis 11.5 complet SerPl-m 017 ug/dL ed Cnc 22:22 Prealb SerPl-mCnc (10-25-2016 22:22) Prealb 8.0 20-41 complet SerPl-m 017 mg/dL ed Cnc 22:22 Magnesium SerPl-mCnc (10-25-2016 22:22) Magnesi 2.1 1.9-2.4 complet um 017 mg/dL ed SerPl-m 22:22 Cnc Salicylates SerPl-sCnc (10-25-2016 22:22) Salicyl 0.8 0-25.0 complet ates 017 mg/dL ed SerPl-s 22:22 Cnc Lactate Bld-sCnc (10-25-2016 21:42) Lactate 3.0 complet 017 mmol/L ed Bld-sCn 21:42 c Ca-I SerPl ISE-sCnc (10-25-2016 21:42) Ca-I 4.1 4.6-5.1 complet SerPl 017 mg/dL ed ISE-sCn 21:42 c Lactate Bld-sCnc (10-25-2016 21:42) Lactate DUP complet 017 DUPLICA ed Bld-sCn 21:42 TE c ORDER,C REDITED L mmol/L Sodium Ur-sCnc (10-25-2016 20:32) Sodium 85 complet Ur-sCnc 017 mmol/L ed 20:32 Creat Ur-mCnc (10-25-2016 20:32) Creat 86 complet Ur-mCnc 017 mg/dL ed 20:32 Bacteria Ur Cult (10-25-2016 20:32) Bacteri [id number] complet a XXX 017 07 ed Anaerob 20:32 Escheri e+Aerob james e Cult coli (organi ) SCT ECOL ESCHERI JAMES COLI L CC XXX NOTAP complet VC-aCnc 017 NOT ed 20:32 APPLICA BLE L Bacteria XXX Anaerobe+Aerobe Cult (10-25-2016 17:49) Bacteri [id number] complet a XXX 017 06 No ed Anaerob 17:49 growth e+Aerob (qualif e Cult ier value) SCT NGB5 NO GROWTH DAY 4. L Lactate Bld-sCnc (10-25-2016 17:10) Lactate 4.9 complet 017 mmol/L ed Bld-sCn 17:10 c Bacteria XXX Anaerobe+Aerobe Cult (10-25-2016 17:10) Bacteri [id number] complet a XXX 017 06 No ed Anaerob 17:10 growth e+Aerob (qualif e Cult ier value) SCT NGB5 NO GROWTH DAY 4. L Phosphate SerPl-mCnc (10-25-2016 17:10) Phospha 5.7 2.5-4.5 complet te 017 mg/dL ed SerPl-m 17:10 Cnc Magnesium SerPl-mCnc (10-25-2016 17:10) Magnesi 2.2 1.9-2.4 complet um 017 mg/dL ed SerPl-m 17:10 Cnc Bas Metab 1999 Pnl SerPl (09-24-2016 11:47) Glucose 130 70-130 complet BldC 017 mg/dL ed Glucomt 11:47 r-mCnc Prothrombin time (09-24-2016 08:20) INR PPP 2.56 complet 017 ed 08:20 Prothro 28.7 9.6-11. complet mbin 017 Seconds 5 ed time 08:20 Bas Metab 1999 Pnl SerPl (09-24-2016 07:57) Glucose 113 70-130 complet BldC 017 mg/dL ed Glucomt 07:57 r-mCnc Bas Metab 1999 Pnl SerPl (09-23-2016 20:31) Glucose 143 70-130 complet BldC 017 mg/dL ed Glucomt 20:31 r-mCnc Bas Metab 2000 Pnl SerPl (09-23-2016 16:00) Glucose 143 70-130 complet BldC 017 mg/dL ed Glucomt 16:00 r-mCnc Prothrombin time (09-23-2016 14:05) INR PPP 2.67 complet 017 ed 14:05 Prothro 30.0 9.6-11. complet mbin 017 Seconds 5 ed time 14:05 Bas Metab 1999 Pnl SerPl (09-23-2016 12:10) Glucose 09-23- 98 70-130 complet BldC 017 mg/dL ed Glucomt 12:10 [facility] Bas Metab 1999 Pnl SerPl (09-23-2016 08:42) Glucose 99 70-130 complet BldC 017 mg/dL [facility] Pnl SerPl (09-23-2016 07:28) [...] g/dL 80 ed SerPl-m 07:28 Cnc Calcium 8.4 8.7-10. complet 017 mg/dL 4 ed XXX-sCn 07:28 c CO2 25.0 20.0-31 complet SerPl-s 017 mmol/L .0 ed Cnc 07:28 Chlorid 103 99-109 complet e 017 mmol/L ed SerPl-s 07:28 Cnc Potassi 3.4 3.5-5.5 complet um 017 mmol/L ed Bld-sCn 07:28 c Sodium 136 132-146 complet Bld-sCn 017 mmol/L ed c 07:28 Creat 2.90 0.60-1. complet Bld-mCn 017 mg/dL 30 ed c 07:28 BUN 09-23-2 16 9-23 complet Bld-mCn 017 mg/dL ed c 07:28 Glucose 09-23-2 122 70-100 complet 017 mg/dL ed Bld-mCn 07:28 c CBC (hemogram) Bld Auto (09-23-2016 07:28) Platele 09-23-2 395 150-450 complet t # Bld 017 10*3/mm ed Auto 07:28 3 PMV Bld 22-2 8.8 fL 6.0-12. complet Auto 017 0 ed 07:28 RDW RBC -22-2 59.2 fl 37.0-54 complet Auto 017 .0 ed 07:28 RDW RBC -22-2 18.9 % 11.3-14 complet 017 .5 ed Auto-Rt 07:28 o MCHC 22-2 29.5 32.0-36 complet RBC 017 g/dL .0 ed Auto-mC 07:28 nc MCH RBC 09-23-2 25.7 pg 27.0-31 complet Qn 017 .0 ed Auto 07:28 MCV RBC 09-23-2 87.1 fL 80.0-99 complet Auto 017 .0 ed 07:28 Hct VFr 09-23-2 33.2 % 34.5-44 complet Bld 017 .0 ed Auto 07:28 Hgb 09-23-2 9.8 11.5-15 complet Bld-mCn 017 g/dL .5 ed c 07:28 RBC # -22-2 3.81 3.89-5. complet Bld 017 10*6/mm 14 ed Auto 07:28 3 WBC 22-2 11.09 3.50-10 complet nRBC 017 10*3/mm .80 ed cor # 07:28 3 Bld Bas Metab 1999 Pnl SerPl (09-22-2016 19:50) Glucose 09-22-2 146 70-130 complet BldC 017 mg/dL ed Glucomt 19:50 r-mCnc Bas Metab 1999 Pnl SerPl (09-22-2016 17:31) Glucose 21-2 193 70-130 complet BldC 017 mg/dL ed Glucomt 17:31 r-mCnc Bas Metab 2000 Pnl SerPl (09-22-2016 12:05) Glucose 09-22-2 117 70-130 complet BldC 017 mg/dL ed Glucomt 12:05 r-mCnc Bas Metab 1999 Pnl SerPl (09-22-2016 08:33) Glucose 107 70-130 complet BldC 017 mg/dL ed Glucomt 08:33 [facility] Prothrombin time (09-22-2016 07:40) INR PPP 2.13 complet 017 ed 07:40 Prothro 23.8 9.6-11. complet mbin 017 Seconds 5 ed time 07:40 Bas Metab 1999 Pnl SerPl (09-21-2016 19:23) Glucose 140 70-130 complet BldC 017 mg/dL ed Glucomt 19:23 [facility] Bas Metab 1999 Pnl SerPl (09-21-2016 16:23) Glucose 126 70-130 complet BldC 017 mg/dL ed Glucomt 16:23 [facility] Hepatitis A+B+C 7a Pnl Ser (09-21-2016 13:28) HCV Ab [id number] Non-[place] complet Ser 017 07 ctive ed Donr Ql 13:28 Non-Su ctive SCT HBV [id number] Non-Su complet core 017 07 ctive ed IgM 13:28 Non-Su SerPl ctive Ql IA SCT HAV IgM [id number] Non-[place] complet SerPl 017 07 ctive ed Ql IA 13:28 Non-[place] ctive SCT HBV [id number] Non-[place] complet surface 017 07 ctive ed Ag 13:28 Non-[place] SerPl ctive Ql IA SCT Bas Metab 1999 Pnl SerPl (09-21-2016 11:38) Glucose 124 70-130 complet BldC 017 mg/dL ed Glucomt 11:38 [facility] Bas Metab 1999 Pnl SerPl (09-21-2016 07:35) Glucose 95 70-130 complet BldC 017 mg/dL ed Glucomt 07:35 [facility] Renal Func 1999 Pnl SerPl (09-21-2016 03:47) GFR/BSA 12 >60 complet .pred 017 mL/min/ ed SerPl 03:47 1.73 MDRD-Ar VRat BUN/Cre 06-20-2 5.9 7.0-25. complet at 017 0 ed SerPl 03:47 Anion 09-21-2 6.0 3.0-11. complet Gap3 017 mmol/L 0 ed SerPl-s 03:47 Cnc Phospha 09-21-2 2.7 2.4-5.1 complet te 017 mg/dL ed SerPl-m 03:47 Cnc Albumin 09-21-2 2.80 3.20-4. complet 017 g/dL 80 ed SerPl-m 03:47 Cnc Calcium 09-21-2 8.6 8.7-10. complet 017 mg/dL 4 ed XXX-sCn 03:47 c CO2 09-21-2 27.0 20.0-31 complet SerPl-s 017 mmol/L .0 ed Cnc 03:47 Chlorid 09-21-2 102 99-109 complet e 017 mmol/L ed SerPl-s 03:47 Cnc Potassi 09-21-2 3.2 3.5-5.5 complet um 017 mmol/L ed Bld-sCn 03:47 c Sodium 09-21-2 135 132-146 complet Bld-sCn 017 mmol/L ed c 03:47 Creat 09-21-2 3.90 0.60-1. complet Bld-mCn 017 mg/dL 30 ed c 03:47 BUN 09-21-2 23 9-23 complet Bld-mCn 017 mg/dL ed c 03:47 Glucose 101 70-100 complet 017 mg/dL ed Bld-mCn 03:47 c Prothrombin time (09-21-2016 03:47) INR PPP 09-21-2 2.63 complet 017 ed 03:47 Prothro 09-21-2 29.5 9.6-11. complet mbin 017 Seconds 5 ed time 03:47 Bas Metab 1999 Pnl SerPl (09-20-2016 20:27) Glucose 09-20- 169 70-130 complet BldC 017 mg/dL ed Glucomt 20:27 [facility] Bas Metab 1999 Pnl SerPl (09-20-2016 16:38) Glucose 170 70-130 complet BldC 017 mg/dL ed [facility]comt 16:[facility] Pnl SerPl (09-20-2016 11:35) Glucose 06-19-2 139 70-130 complet BldC 017 mg/dL ed Glucomt 11:35 r-nc Bas Metab 1999 Pnl SerPl (09-20-2016 07:50) [...] 017 mg/dL ed SerPl-m 03:24 Cnc ALP 126 U/L 25-100 complet SerPl-c 017 ed Cnc 03:24 AST 29 U/L 0-33 complet SerPl-c 017 ed Cnc 03:24 ALT 15 U/L 7-40 complet SerPl w 017 ed 03:24 P-5'-P- cCnc Albumin 2.60 3.20-4. complet 017 g/dL 80 ed SerPl-m 03:24 Cnc Prot 5.2 5.7-8.2 complet SerPl-m 017 g/dL ed Cnc 03:24 Calcium 8.2 8.7-10. complet 017 mg/dL 4 ed XXX-sCn 03:24 c CO2 25.0 20.0-31 complet SerPl-s 017 mmol/L .0 ed Cnc 03:24 Chlorid 103 99-109 complet e 017 mmol/L ed SerPl-s 03:24 Cnc Potassi 3.4 3.5-5.5 complet um 017 mmol/L ed Bld-sCn 03:24 c Sodium 137 132-146 complet Bld-sCn 017 mmol/L ed c 03:24 Creat 3.90 0.60-1. complet Bld-mCn 017 mg/dL 30 ed c 03:24 BUN 17 9-23 complet Bld-mCn 017 mg/dL ed c 03:24 Glucose 127 70-100 complet 017 mg/dL ed Bld-mCn 03:24 c Phosphate SerPl-mCnc (09-20-2016 03:24) Phospha 2.4 2.4-5.1 complet te 017 mg/dL ed SerPl-m 03:24 Cnc Mg Ionized SerPl-mCnc (09-20-2016 03:24) Magnesi 2.0 1.3-2.7 complet um 017 mg/dL ed SerPl-m 03:24 Cnc CBC W Diff pnl,unspecified Bld (09-20-2016 03:24) Imm 09-20- 0.07 0.00-0. complet Granulo 017 10*3/mm 03 ed cytes # 03:24 3 Bld Basophi 2 0.08 0.00-0. complet ls # 017 10*3/mm 20 ed Bld 03:24 3 Auto Eosinop 09-20-2 0.29 0.10-0. complet hil # 017 10*3/mm 30 ed Bld 03:24 3 Auto Monocyt 09-20-2 0.91 0.00-1. complet es # 017 10*3/mm 00 ed Bld 03:24 3 Auto Lymphoc 09-20-2 1.20 0.60-4. complet ytes # 017 10*3/mm 80 ed Bld 03:24 3 Auto Neutrop 09-20-2 8.48 1.50-8. complet hils # 017 10*3/mm 30 ed Bld 03:24 3 Auto Imm -19-2 0.6 % 0.0-0.6 complet Granulo 017 ed cytes/l 03:24 euk NFr Bld Basophi -19-2 0.7 % 0.0-1.0 complet ls/leuk 017 ed NFr 03:24 Bld Auto Eosinop 19-2 2.6 % 0.0-3.0 complet hil/mick 017 ed k NFr 03:24 Bld Auto Monocyt 19-2 8.3 % 0.0-12. complet es/leuk 017 0 ed NFr 03:24 Bld Auto Lymphoc 19-2 10.9 % 24.0-44 complet ytes/le 017 .0 ed uk NFr 03:24 Bld Auto Neutrop 19-2 76.9 % 41.0-71 complet hils/le 017 .0 ed uk NFr 03:24 Bld Auto Platele 09-20-2 397 150-450 complet t # Bld 017 10*3/mm ed Auto 03:24 3 PMV Bld 09-20-2 9.1 fL 6.0-12. complet Auto 017 0 ed 03:24 RDW RBC 19-2 58.1 fl 37.0-54 complet Auto 017 .0 ed 03:24 RDW RBC -19-2 18.4 % 11.3-14 complet 017 .5 ed Auto-Rt 03:24 o MCHC 19-2 30.0 32.0-36 complet RBC 017 g/dL .0 ed Auto-mC 03:24 nc MCH RBC 19-2 26.1 pg 27.0-31 complet Qn 017 .0 ed Auto 03:24 MCV RBC 19-2 87.0 fL 80.0-99 complet Auto 017 .0 ed 03:24 Hct VFr 19-2 30.0 % 34.5-44 complet Bld 017 .0 ed Auto 03:24 Hgb -19-2 9.0 11.5-15 complet Bld-mCn 017 g/dL .5 ed c 03:24 RBC # 06-19-2 3.45 3.89-5. complet Bld 017 10*6/mm 14 ed Auto 03:24 3 WBC 11.03 3.50-10 complet nRBC 017 10*3/mm .80 ed cor # 03:24 3 Bld Bas Metab 2000 Pnl SerPl (09-19-2016 20:20) Glucose 147 70-130 complet BldC 017 mg/dL ed Glucomt 20:20 r-mCnc Bas Metab 2000 Pnl SerPl (09-19-2016 16:28) Glucose 141 70-130 complet BldC 017 mg/dL ed Glucomt 16:28 r-mCnc Bas Metab 2000 Pnl SerPl (09-19-2016 11:46) Glucose 156 70-130 complet BldC 017 mg/dL ed Glucomt 11:46 r-mCnc Bas Metab 2000 Pnl SerPl (09-19-2016 07:41) Glucose 105 70-130 complet BldC 017 mg/dL ed Glucomt 07:41 r-mCnc Cortis SerPl-mCnc (09-19-2016 07:18) Cortis 31.00 complet SerPl-m 017 mcg/dL ed Cnc 07:18 Cortis SerPl-mCnc (09-19-2016 06:49) Cortis 25.30 complet SerPl-m 017 mcg/dL ed Cnc 06:49 Ferritin SerPl-mCnc (09-19-2016 06:07) Ferriti 2007.00 10.00-2 complet n 017 ng/mL 91.00 ed SerPl-m 06:07 Cnc Troponin I SerPl-mCnc (09-19-2016 06:07) Troponi 1.533 <=0.039 complet n I 017 ng/mL ed SerPl-m 06:07 Cnc Renal Func 1999 Pnl SerPl (09-19-2016 06:07) GFR/BSA 13 >60 [...] mbin 017 Seconds 5 ed time 06:07 Iron+TIBC Pnl SerPl (09-19-2016 06:07) Iron 21 % 15-50 complet Satn 017 ed MFr 06:07 SerPl TIBC 144 250-450 complet SerPl-m 017 mcg/dL ed Cnc 06:07 Iron 30 50-175 complet 24h 017 mcg/dL ed Ur-mRat 06:07 e Cortis SerPl-mCnc (09-19-2016 06:07) Cortis 14.90 complet SerPl-m 017 mcg/dL ed Cnc 06:07 Bas Metab 1999 Pnl SerPl (09-18-2016 21:06) Glucose 142 70-130 complet BldC 017 mg/dL ed Glucomt 21:06 r-nc C dif Tox gens Stl Ql PCR (09-18-2016 20:59) C dif [id number] Negativ complet Tox 017 01 e ed gens 20:59 Detecte Stl Ql d SCT PCR Bas Metab 1999 Pnl SerPl (09-18-2016 16:18) Glucose 145 70-130 complet BldC 017 mg/dL ed Glucomt 16:18 r-nc Troponin I SerPl-mCnc (09-18-2016 12:24) Troponi 1.771 [...] complet BldC 017 mg/dL ed Glucomt 11:37 r-nc Bas Metab 1999 Pnl SerPl (09-18-2016 07:21) Glucose 109 70-130 complet BldC 017 mg/dL ed Glucomt 07:21 r-nc Bas Metab 1999 Pnl SerPl (09-18-2016 05:15) Glucose 119 70-130 complet BldC 017 mg/dL ed Glucomt 05:15 r-nc LDH SerPl-cCnc (09-18-2016 04:21) LDH 281 U/L 120-246 complet SerPl-c 017 ed Cnc 04:21 Cortis SerPl-mCnc (09-18-2016 04:21) Cortis 20.10 complet SerPl-m 017 mcg/dL ed Cnc 04:21 Amylase SerPl-cCnc (09-18-2016 04:21) Amylase 22 U/L 30-118 complet 017 ed SerPl-c 04:21 Cnc Bacteria Bld Cult (09-18-2016 04:21) Bacteri 17-2 No complet a XXX 017 growth ed Aerobe 04:21 at 5 Cult days Troponin I SerPl-mCnc (09-18-2016 03:28) Troponi 2.052 <=0.039 complet n I 017 ng/mL ed SerPl-m 03:28 Cnc BNP SerPl-mCnc (09-18-2016 03:28) BNP 1373.0 0.0-100 complet SerPl-m 017 pg/mL .0 ed Cnc 03:28 CK Pnl SerPl (09-18-2016 03:28) CK MB 2.96 0.00-5. complet SerPl-c 017 ng/mL 00 ed Cnc 03:28 CK 139 U/L 26-174 complet SerPl-c 017 ed Cnc 03:28 Bacteria Bld Cult (09-18-2016 03:28) Bacteri 17-2 No complet a XXX 017 growth ed Aerobe 03:28 at 5 Cult days Procalcitonin SerPl-mCnc (09-18-2016 03:18) Procalc 1.03 complet [...] complet 014 mg/dL 1 ed SerPl-m 06:25 [facility] Glucose BldC Glucomtr-[facility] (05-02-2013 19:21) Glucose 214 70-110 complet BldC 014 mg/dl [facility] (05-02-2013 16:32) Glucose 205 70-110 complet BldC 014 mg/dl ed [facility]IC PAN[facility] (05-02-2013 16:30) Glucose 194 [...] complet 014 mg/dL 1 ed SerPl-m 16:30 [facility] Glucose BldC Glucomtr-[facility] (05-02-2013 11:59) Glucose 246 70-110 complet BldC 014 mg/dl ed [facility] 11:[address] [facility] (05-02-2013 06:41) Glucose 204 70-110 complet BldC 014 mg/dl ed [facility] 06:[address] [facility] L[facility] (05-02-2013 06:30) Cholest 192 Less [...] with AUTO DIFF (05-02-2013 06:30) WBC # 05-02- 9.0 4.8-10. complet Bld 014 K/MM3 8 ed Auto 06:30 RBC # 05-02- 3.71 4.2-5.4 complet Bld 014 M/mm3 ed [...] ed Fr Bld 06:30 Auto LYMPH % 33.5 % 10-50.0 complet 014 ed 06:30 Monocyt 6.3 % 1.7-9.3 complet es Fr 014 ed Bld 06:30 Auto Eosinop 05-02-2 3.4 % 0.1-12. complet hil Fr 014 0 ed Bld 06:30 Auto Basophi 05-02-2 1.0 % 0.1-2.0 complet ls Fr 014 ed Bld 06:30 Auto Granulo 05-02-2 5.0 1.8-7.8 complet cytes # 014 K/mm3 ed Bld 06:30 Auto Lymphoc 05-02-2 3.0 0.7-4.5 complet ytes Fr 014 K/mm3 ed Bld 06:30 Auto Monocyt 05-02-2 0.6 0.1-1.0 complet es # 014 K/mm3 ed Bld 06:30 Auto Eosinop 29-2 0.3 0.0-0.4 complet hil # 014 K/mm3 ed Bld 06:30 Auto Basophi 05-02-2 0.1 0-0.2 complet ls # 014 K/MM3 ed Bld 06:30 [facility] 21[facility]11[facility] Glucose 244 70-110 complet BldC 014 mg/dl ed Glucomt 21:11 r-[facility] Glucose BldC Glucomtr-[facility] (05-01-2013 16:44) Glucose 202 70-110 complet BldC 014 mg/dl ed Glucomt 16:44 r-[facility] Glucose BldC Glucomtr-[facility] (05-01-2013 11:33) Glucose 218 70-110 complet BldC 014 mg/dl ed Glucomt 11:33 r-[facility] BASIC METABOLIC PANEL (05-01-2013 06:45) Glucose [...] with AUTO DIFF (05-01-2013 06:45) WBC # 8.7 4.8-10. complet Bld 014 K/MM3 8 [...] K/MM3 ed Bld 06:45 [facility] 06[facility]09[facility] Glucose 166 70-110 complet BldC 014 mg/dl ed Glucomt 06:09 r-[facility] BASIC METABOLIC PANEL (04-30-2013 14:25) Glucose [...] Date Code Location Performer Type Date Inpatient JS Ren MD (IN) 4 12:40 4 11:[address] [facility] Emergency MACK Lanier MD (ER) 4 15:04 4 15:37 [facility]
--- OUTSIDE RECORDS SUMMARY | 2017-02-25 13:37 | External Medical Summary Rpt | CCD ---
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 I73.9 PERIPHERAL 01-18-2017 VASCULAR DISEASE, UNSPECIFIED I87.9 DISORDER OF 01-18-2017 VEIN, UNSPECIFIED M19.90 UNSPECIFIED 01-18-2017 OSTEOARTHRI TIS, UNSPECIFIED SITE N18.6 END STAGE 01-18-2017 RENAL DISEASE Z79.01 FDC 01-18-2017 (CURRENT) USE OF ANTICOAGULA NTS Z79.899 [...] 250.60 250.60 DIAB 05-03-2013 Pan Andrew NEURO [facility] MANIFEST, Hospital TYPE II OR UNSPEC TYPE, NOT UNCNTRLD 250.70 250.70 DIAB 05-03-2013 Pan Andrew [facility] CIRC DIS, Hospital TYPE II OR UNSPEC TYPE, NOT UNCNTRLD 357.2 357.2 05-03-2013 Pan [facility] [place] DIABETES Hospital 403.90 403.90 05-03-2013 Pan HYPTNSV CHR [facility] KID DIS, Hospital UNSPEC, W CHR KD STAGE I-IV OR UNSP 493.90 493.90 05-03-2013 Pan ASTHMA, [facility] UNSPECIFIED Hospital 585.9 585.9 05-03-2013 Pan CHRONIC [facility] KIDNEY Hospital DISEASE, UNSPECIFIED 785.4 785.4 05-03-2013 Pan GANGRENE [facility] V12.54 V12.54 05-03-2013 Pan PERSONAL HX [facility] TIA AND Hospital 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 V58.61 V58.61 05-03-2013 Pan ANTICOAGULA [facility] NTS,LT,CURR Hospital ENT USE V58.67 V58.67 05-03-2013 Pan LONG-TERM [facility] (CURRENT) Hospital USE OF INSULIN 250.81 250.81 DIAB 04-26-2013 Pan Andrew OTH SPEC [facility] MANIFEST, Hospital TYPE I [JUVENILE TYPE], NOT UNCNTR 401.9 401.9 04-26-2013 Pan HYPERTENSIO [facility] N NOS Hospital 707.15 707.15 04-26-2013 Pan ULCER OF [facility] OTHER PART Hospital OF FOOT E11.9 TYPE [...] 51 01 0 No TO 07 -3 KS 90 0- Lo OL 80 20 ng OL 12 14 er 0 TA Ac RT ti RA ve TE 50 MG TA B SP 46 01 0 No S 28 -2 15 70 9- Lo 00 20 ng GM 66 14 er /6 0 0 Ac ML ti ve HERNANDEZ SP EN SI ON ME 51 01 0 No TO 07 -2 KS 90 9- Lo OL 25 20 ng OL 52 14 er 0 TA Ac RT ti RA ve TE 25 MG TA B 16 01 1 No PI 10 -2 RI 30 9- Lo N 35 20 ng EC 60 14 er 9 81 Ac ti MG ve TA BL ET KS 51 01 1 No AV 07 -2 [...] 51 01 1 No TO 07 -2 KS 90 8- Lo OL 25 20 ng OL 52 14 er 0 TA Ac RT ti RA ve TE 25 MG TA B FU 51 01 2 No RO 07 -2 SE 90 8- Lo TN 07 20 ng DE 22 14 er [...] SI 73 -2 NO 90 7- Lo KS 34 20 ng IL 91 14 er [...] RO 40 -2 SE 96 7- Lo TN 10 20 ng DE 20 14 er [...] Results sent to: ALIYA GARCIA DPM 02/22/17 2254 Comment: Og Wei Pharmacist recommendation for Warfarin [...] 02:04 Cnc MDRO Wnd (10-26-2016 19:22) Bacteri [id number] complet a XXX 017 00 not ed [...] L Cnc NT-proBNP SerPl-mCnc (10-25-2016 22:22) NT-proB 16813 0-899 complet SWITCHBOARD TROUBLESHOOTER 017 pg/mL ed SerPl-m 22:22 Cnc Cortis [...] 20:32 Bacteria Ur Cult (10-25-2016 20:32) Bacteri [id number] complet a XXX 017 07 ed Anaerob 20:32 Escheri e+Aerob james e Cult coli (organi ) SCT ECOL ESCHERI JAMES COLI L CC XXX NOTAP complet VC-aCnc 017 NOT ed 20:32 APPLICA BLE L Bacteria XXX Anaerobe+Aerobe Cult (10-25-2016 17:49) Bacteri [id number] complet a XXX 017 06 No ed Anaerob 17:49 growth e+Aerob (qualif e Cult ier value) SCT NGB5 NO GROWTH DAY 4. L Lactate Bld-sCnc (10-25-2016 17:10) Lactate 4.9 complet 017 mmol/L ed Bld-sCn 17:10 c Bacteria XXX Anaerobe+Aerobe Cult (10-25-2016 17:10) Bacteri [id number] complet a XXX 017 06 No ed [...] complet BldC 017 mg/dL ed Glucomt 12:10 [facility] Bas Metab 1999 Pnl SerPl (09-23-2016 08:42) Glucose 99 70-130 complet BldC 017 mg/dL ed [facility] P[facility] SerPl (09-23-2016 [...] complet BldC 017 mg/dL ed Glucomt 08:33 [facility] Prothrombin time (09-22-2016 07:40) INR PPP 2.13 complet 017 ed 07:40 Prothro 23.8 9.6-11. complet mbin 017 Seconds 5 ed time 07:40 Bas Metab 1999 Pnl SerPl (09-21-2016 19:23) Glucose 140 70-130 complet BldC 017 mg/dL ed Glucomt 19:23 [facility] Bas Metab 1999 Pnl SerPl (09-21-2016 16:23) Glucose 126 70-130 complet BldC 017 mg/dL ed Glucomt 16:23 [facility] Hepatitis A+B+C 7a Pnl Ser (09-21-2016 13:28) HCV Ab [id number] Non-[place] complet Ser 017 07 ctive ed Donr Ql 13:28 Non-Su ctive SCT HBV [id number] Non-Su complet core 017 07 ctive ed IgM 13:28 Non-Su SerPl ctive Ql IA SCT HAV IgM [id number] Non-[place] complet SerPl 017 07 ctive ed Ql IA 13:28 Non-[place] ctive SCT HBV [id number] Non-[place] complet surface 017 07 ctive ed Ag 13:28 Non-[place] SerPl ctive Ql IA SCT Bas Metab 1999 Pnl SerPl (09-21-2016 11:38) Glucose 124 70-130 complet BldC 017 mg/dL ed Glucomt 11:38 [facility] Bas Metab 1999 Pnl SerPl (09-21-2016 07:35) Glucose 95 70-130 complet BldC 017 mg/dL ed Glucomt 07:35 [facility] Renal Func 1999 Pnl SerPl (09-21-2016 [...] complet BldC 017 mg/dL ed Glucomt 20:27 r-[facility] Bas Metab 1999 Pnl SerPl (09-20-2016 16:38) Glucose 170 70-130 complet BldC 017 mg/dL ed Glucomt 16:38 [facility] Bas Metab 1999 Pnl SerPl (09-20-2016 11:35) [...] Stl Ql PCR (09-18-2016 20:59) C dif [id number] Negativ complet Tox 017 01 e ed [...] complet 014 mg/dL 1 ed SerPl-m 06:25 [facility] Glucose BldC Glucomtr-[facility] (05-02-2013 19:21) Glucose 214 70-110 complet BldC 014 mg/dl ed Glucomt 19:21 [facility] Glucose BldC Glucomtr-[facility] (05-02-2013 16:32) Glucose 205 70-110 complet BldC 014 mg/dl ed Glucomt 16:32 [facility] BASIC METABOLIC PANEL (05-02-2013 16:30) Glucose [...] complet 014 mg/dL 1 ed SerPl-m 16:30 [facility] Glucose BldC Glucomtr-[facility] (05-02-2013 11:59) Glucose 246 70-110 complet BldC 014 mg/dl ed Glucomt 11:59 [facility] Glucose BldC Glucomtr-[facility] (05-02-2013 06:41) Glucose 204 70-110 complet BldC 014 mg/dl ed Glucomt 06:41 [facility] LIPID PROFILE (05-02-2013 06:30) Cholest 192 [...] K/MM3 ed Bld 06:30 Auto [facility] (05-01-2013 21:11) Glucose 244 70-110 complet BldC 014 mg/dl ed Glucomt 21:11 r-[facility] Glucose BldC Glucomtr-[facility] (05-01-2013 16:44) Glucose 202 70-110 complet BldC 014 mg/dl ed Glucomt 16:44 r-[facility] Glucose BldC Glucomtr-[facility] (05-01-2013 11:33) Glucose 218 70-110 complet BldC 014 mg/dl ed Glucomt 11:33 r-[facility] BASIC METABOLIC PANEL (05-01-2013 06:45) Glucose 176 [...] K/MM3 ed Bld 06:45 [facility] 06:09) Glucose 166 70-110 complet BldC 014 mg/dl ed Glucomt 06:09 r-[facility] BASIC METABOLIC PANEL (04-30-2013 14:25) Glucose 176 [...] Ren MD (IN) 4 12:40 4 11:15 [facility] Emergency MACK Lanier MD (ER) 4 15:04 4 15:37 [facility]
--- OUTSIDE RECORDS SUMMARY | 2017-02-25 13:38 | External Medical Summary Rpt | CCD ---
Demographics Preferred Language Citizen Of [place] Marital Status Unknown Gnosticism Affiliation Unknown Race Unknown Ethnic Group Unknown Author Author , KATRIN WILKES Address Unknown Phone Immunization No patient found.
--- OUTSIDE RECORDS SUMMARY | 2017-02-25 13:38 | External Medical Summary Rpt | CCD ---
Demographics Preferred Language Jordanian Marital Status Unknown Episcopal Affiliation Unknown Race Unknown Ethnic Group Unknown Author Author , KATRIN WILKES Address Unknown Phone Immunization No patient found.
--- NOTE | 2017-02-25 14:31 | Urgent Treatment Center Report ---
History of Present Issue Date/Time Seen by Provider 02/25/17 1410 Visit Reason Pt arrived:Wheelchair Presenting Problem:PT C/O BILATERAL LEG PAIN AND THAT THE RIGHT LEG IS SWOLLEN Location if Accident: Onset of symptoms date/time:/ or onset unknown for:MEDICAL HX UNKNOWN Have you (or family members/close friends) recently traveled outside the [place]? N If Yes, where/when: Have you had exposure to infectious disease within the past month? TB? Other? Specify: c/o sudheer lower leg pain and swelling with right worse then left. Worried about DVT in right leg. Hx of DVTs but reports last one years ago. Supposed to go to dialysis today but due to leg pain and swelling, came here instead. Denies that legs are typically swollen, even on dialysis days. Had appt to see Dr. Vigil on 02/22 for ulcer left toe but didn't make the appt. Denies that left foot is typically red or swollen. "just the sore on the toe". Last INR 02/22 5.4. Coumadin currently on hold. Source patient, family Exam Limitations no limitations ALLERGIES Coded Allergies: Penicillins (BLACKS OUT 01/13/16) butorphanol (BLACKS OUT 01/13/16) Home Medications Reported Medications Gabapentin (Neurontin 300MG) 300 MG PO BID WARFARIN SOD (Warfarin 5MG) 3 MG PO DAILY Insulin Lispro (Humalog Kwikpen) 100 UNIT SQ BID PRN SUGAR #12 History Medical History General CAD? Yes Angina: No ME: No Hypertension? Yes Hyperlipidemia? Yes CHF? Yes DVT? Yes PE? Yes COPD? No Asthma? Yes Anemia? No GERD? No Gastric ulcers? No GI Bleed? Yes Hernia? No Thyroid Problems? Yes Hypothyroidism? Yes CVA? Yes Seizures? No Diabetes? Yes Insulin Dependent: Yes Insulin Pump: No Home FSBS? Yes Renal Insuffiency? Yes UTI? Yes Stones? No GB Disease: No Nephritic Syndrome? No Asplenia? No Hepatitis? No Sickle Cell Disease? No Arthritis? Yes Migraines? Yes Cataracts? No Glaucoma? No MRSA? No HIV? No TB? No Anxiety? No Depression? No Cancer? No More? Yes Additional hx: Gout GINO intolerant to CPAP Gout Diabetic neuropathy RENAL DIALYSIS Immunization HX DT/Tetanus 1-4 YRS Flu Refused Pneumonia Received In Past Surgical Hx Previous Surgery?Y APPY TUBAL LIGATION CYST REMOVED FROM ARM TONSILLECTOMY DIALYSIS PORT Family History Family HX Diabetes Yes CAD Yes Hypertension Yes Hyperlipidemia Yes Cancer Yes TB No Social History Smoking Hx Smoker: Former Smoker Tobacco: No Packs/day N/A Alcohol Alcohol: No Review of Systems All Other Systems Reviewed and Negative (as appropriate for [facility] triage) Constitutional denies fever, denies malaise Respiratory denies shortness of breath Musculoskeletal see HPI Skin see HPI Physical Exam Vital Signs Vital Signs Date Time Temp Pulse Resp B/P Pulse O2 O2 Flow FiO2 Ox Delivery Rate 02/25 1336 97.9 66 16 134/87 99 General Appearance no apparent distress, seated in WC Respiratory Status No: respiratory distress. Cardiovascular 3-4+ pitting right foot/lower leg, 2-3+ left foot and lower leg Peripheral Pulses Pulses normal No Comment unable to palpate due to edema Extremities bilateral lower legs TTP mid thigh to feet Neurologic alert, oriented x 3 Skin warm/dry, left foot, ankle, lower leg erythematous, unstageable left heel. Spouse reports new 2 days ago, "initially a blister then once popped, dried black". Using a white unknown medication from on it, scab to left second toe, open to air, erythematous Medical Decision Making LABS/Meds/Orders Pt receiving controlled substance in ED? No Progress [facility] Progress Notes Date 02/25/17 Time 1420 Comment Discussed concerning symptoms and exam. Pt and spouse agreeable to transfer to ER for further evaluation. Aware that admission might be required. Pt agreeable. Report given to July and then called to NORMAN Gavin RN. Departure Departure Time of Disposition 1422 Disposition Still a Patient Clinical Impression Primary Impression: Bilateral leg pain Secondary Impressions: Cellulitis of left foot, Localized swelling of both lower legs, Unstageable pressure ulcer of left heel Condition STABLE at 1431
--- NOTE | 2017-02-25 14:53 | Emergency Room Report ---
History of Present Illness Time Seen by 1430 Presenting Problem in Triage Pt arrived:Wheelchair Presenting Problem:PT C/O BILATERAL LEG PAIN AND THAT THE RIGHT LEG IS SWOLLEN. 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 N Clinical Suspician of Infection? N Mental Status: 1 - Regular (Normal Baseline) Sepsis Risk:Low Sepsis Risk Have you (or family members/close friends) recently traveled outside the [place]? N If Yes, where/when: Have you had exposure to infectious disease within the past month? N TB? Other? Specify: Patient complains of bilateral lower extremity edema she states she can't see well her significant other states that her LEFT foot is becoming increasingly erythematous and that she has developed black heel ulcer on her LEFT heel that is new and has been present for the past 3 days with increased swelling of the LEFT leg is of the LEFT foot. Patient also complains of pain and swelling in the RIGHT foot she has a recent history of having her INR elevated in the 5 range and holding Coumadin and not being on Coumadin for the past couple days and she is concerned she may have developed a DVT in the RIGHT leg. Eyes any chest pain headache or abdominal pain no shortness of breath complaint. He states she is always cold but denies any fevers or chills. sHe was supposed to have dialysis today but came to the emergency room instead. complaines of moderate achy pain in the extremities no radiation ALLERGIES Coded Allergies: Penicillins (BLACKS OUT 01/13/16) butorphanol (BLACKS OUT 01/13/16) Home Medications Reported Medications Gabapentin (Neurontin 300MG) 300 MG PO BID WARFARIN SOD (Warfarin 5MG) 3 MG PO DAILY Insulin Lispro (Humalog Kwikpen) 100 UNIT SQ BID PRN SUGAR #12 History Medical History General CAD? Yes Angina: No CT: No Hypertension? Yes Hyperlipidemia? Yes CHF? Yes DVT? Yes PE? Yes COPD? No Asthma? Yes Anemia? No GERD? No Gastric ulcers? No GI Bleed? Yes Hernia? No Thyroid Problems? Yes Hypothyroidism? Yes CVA? Yes Seizures? No Diabetes? Yes Insulin Dependent: Yes Insulin Pump: No Home FSBS? Yes Renal Insuffiency? Yes End Stage Renal Disease? No UTI? Yes Stones? No GB Disease: No Nephritic Syndrome? No Asplenia? No Hepatitis? No Sickle Cell Disease? No Arthritis? Yes Migraines? Yes Cataracts? No Glaucoma? No MRSA? No HIV? No TB? No Anxiety? No Depression? No Cancer? No More? Yes Additional hx: Gout GINO intolerant to CPAP Gout Diabetic neuropathy RENAL DIALYSIS Immunization Hx DT/Tetanus 1-4 YRS Flu Refused Pneumonia Received In Past Surgical Hx Previous Surgery?Y APPY TUBAL LIGATION CYST REMOVED FROM ARM TONSILLECTOMY DIALYSIS PORT Family History Family Hx Diabetes Yes CAD Yes Hypertension Yes Hyperlipidemia Yes Cancer Yes TB No Social History Smoking Hx Smoker: Never Smoker Tobacco: No Packs/day N/A Alcohol Alcohol: No Review of Systems All Other Systems Reviewed and Negative Comment Review of systems otherwise negative except for than history of present illness Physical Exam Vital Signs Vital Signs Date Time Temp Pulse Resp B/P Pulse O2 O2 Flow FiO2 Ox Delivery Rate 02/25 1654 97.6 80 16 166/73 100 02/25 1540 97.7 84 16 154/90 94 02/25 1425 97.9 66 16 134/87 99 02/25 1336 97.9 66 16 134/87 99 General Appearance: Nontoxic Head: Normocephalic, without obvious abnormality, atraumatic. Eyes: conjunctiva/corneas clear ENT: Mucous membranes moist. Neck: No jugular venous distention. Cardiac: regular rate and rhythm Lungs: Clear to auscultation bilaterally Abdomen: Nontender, Nondistended, positive bowel sounds, no rebound : No CVA tenderness Extremities: + 2-3 edema RIGHT lower extremity has some calf tenderness edema and swelling erythema LEFT foot has some diffuse erythema cellulitis and swelling and warmth of the LEFT foot as well as an eschar on the back of the LEFT foot. refill intact. Musculoskeletal: No chest wall tenderness Skin: No rashes or lesions to exposed skin. Neurologic: Alert. No gross focal deficits Psychiatric: Normal affect (Sari ALVAREZ, Timoteo) General Appearance normal appearance Respiratory Status No: respiratory distress. Cardiovascular normal exam Neurologic alert Medical Decision Making LABS/Meds/Orders Pt receiving controlled substance in ED? No Comment 505pm pt will need dialysis, does not desire , call out to [facility]. 512 gracie Diamond MD, dialysis missed today, foot infection diabetic with ulcer, dw ble SVT inadequete US below knees due to edema. dw labs, INR here. Results/Orders Laboratory Tests 02/25/171454: Lactic Acid 1.3 02/25/17 145: Troponin I 0.03, B-Natriuretic Peptide 2200 H 02/25/17 1455: Sodium 145, Potassium 5.1, Chloride 107, Carbon Dioxide 20 L, BUN 71 H, Creatinine 6.3 H, Estimated Creat Clear 9 L, Estimated GFR (MDRD) 7 *L, Glucose 177 H, Calcium 8.1 L, Total Bilirubin 0.5, AST 12 L, ALT 10 L, Alkaline Phosphatase 148 H, Total Protein 7.2, Albumin 2.9 L, Globulin 4.3 H, Albumin/Globulin Ratio 0.7 L, PT 38.8 H, INR 3.55 H, APTT 52.7 *H, WBC 10.3, RBC 4.04 L, Hgb 10.8 L, Hct 37.3, MCV 92.2, RDW 15.3, Plt Count 499 H, MPV 6.9 L, Gran % 71.3, Gran # 7.4, Lymphocytes % 14.2, Monocytes % 8.0, Eosinophils % 5.2, Basophils % 1.3, Lymphocytes # 1.5, Monocytes # 0.8, Eosinophils # 0.5 H, Basophils # 0.1, PUBS MCHC 29.0 L, MCH 26.8 L Current Medication Orders Sig/Koko Start time Last Medication Dose Route Stop Time Status Admin Levofloxacin/Dextrose 100 ML .STK-MED ONE 02/25 1556 DC IV Vancomycin HCl 1,250 MG ONCE ONE 02/25 1545 CKDr Sodium Chloride 250 ML IV 02/25 1744 Levofloxacin/Dextrose 100 ML ONCE ONE 02/25 1500 DCr 02/25 IV 02/25 1559 1559 Miscellaneous 1 EACH CONSULT PHARMACY 02/25 1500 AC Information * 02/26 0254 Sodium Chloride 10 ML PRN PRN 02/25 1430 AC IV 02/26 1430 Orders Procedure Date/time Status ELECTROCARDIOGRAM REQUEST 02/25 1456 Active CHEST(2 VIEWS-NOT PORTABLE) 02/25 1456 Active TROPONIN I 02/25 1456 Complete BRAIN NATRIURETIC PEPTIDE 02/25 1456 Complete 12 LEAD EKG-[facility] (INITIAL) 02/25 1455 Active FOOT-LT-3 VIEWS 02/25 1455 Active LACTIC ACID 02/25 1441 Complete IV SALINE LOCK 02/25 1430 Active CULTURE, BLOOD 02/25 1430 Active PARTIAL THROMBOPLASTIN TIME 02/25 1430 Complete PROTHROMBIN TIME 02/25 1430 Complete CBC WITH AUTO DIFF 02/25 1430 Complete CHEM 12 PROFILE 02/25 1430 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
[2017-02-25 15:09] LABS: HEMOGLOBIN 10.8 g/dL (12.2-16.2); LYMPH # 1.5 K/mm3 (0.7-4.5); LYMPH % 14.2 % (10-50.0)
--- NOTE | 2017-02-25 15:52 | CARDIOVASCULAR REPORT ---
"Venous Exam Indications: 729.5 Pain in limb. 729.81 Swelling of limb. IMPRESSIONS 1. There is no evidence of significant Reflux. 2. Superficial vein thrombosis involving the right great saphenous vein and left great saphenous vein Unable to visualize below knees secondary to edema bilaterally History: PMH: Deep vein thrombosis. Bilateral redness edema lower limbs Complete lower extremity venous duplex evaluation. Doppler flow study including spectral analysis, color and andrews scale imaging. Location: Bedside. Patient status: Emergency department. CRITICAL FINDINGS - Reported to: joss - Read back and verified. - 02/25/17 - 1545 - SVT Tables: Venous flow and imaging: + + + + |Location |Overall |Flow properties | + + + + |Right common femoral |Patent |Normal phasicity; | | | |spontaneous; normal | | | |augmentation; | | | |compressible | + + + + |Right saphenofemoral |Patent |Compressible | |junction | | | + + + + |Right profunda femoral |Patent |Compressible | + + + + |Right femoral |Patent |Normal phasicity; | | | |spontaneous; normal | | | |augmentation; | | | |compressible; no reflux | + + + + |Right greater saphenous |Partially occluded|Diminished phasicity; | | | |diminished spontaneity; | | | |diminished augmentation; | | | |partially compressible | + + + + |Right popliteal |Patent |Normal phasicity; | | | |spontaneous; normal | | | |augmentation; | | | |compressible | + + + + |Right posterior tibial |Difficult study | | + + + + |Right peroneal |Difficult study | | + + + + |Right gastrocnemius |Patent |Compressible | + + + + |Right soleal |Patent |Compressible | + + + + |Left common femoral |Patent |Normal phasicity; | | | |spontaneous; normal | | | |augmentation; | | | |compressible | + + + + |Left saphenofemoral |Patent |Compressible | |junction | | | + + + + |Left profunda femoral |Patent |Compressible | + + + + |Left femoral |Patent |Normal phasicity; | | | |spontaneous; normal | | | |augmentation; | | | |compressible | + + + + |Left greater saphenous |Partially occluded|Diminished phasicity; | | | |diminished spontaneity; | | | |diminished augmentation; | | | |partially compressible | + + + + |Left popliteal |Patent |Normal phasicity; | | | |spontaneous; normal | | | |augmentation; | | | |compressible | + + + + |Left posterior tibial |Difficult study | | + + + + |Left peroneal |Difficult study | | + + + + |Left gastrocnemius |Patent |Compressible | + + + + |Left soleal |Patent |Compressible | + + + + (Report amended ) Electronically signed by: Brando Morgan [id number]"
--- NOTE | 2017-02-25 18:06 | RADIOLOGY REPORT PS360 ---
CHEST(2 VIEWS-NOT PORTABLE) COMPARISON: Portable upright chest 10/25/2016 HISTORY: Shortness of breath TECHNIQUE: AP upright chest on stretcher FINDINGS: The lung parra are fairly well-expanded. There is elevation right hemidiaphragm with blunting of the right costo phrenic angle in the appearance suggests a moderate sized subpulmonic pleural effusion. There may be minimal pneumonic infiltrate at the right base as well. There is a large bore catheter running the right subclavian vein with the tip in the SVC just above the right atrium. The right upper lung field left ocular clear. There is mild to moderate relies cardio megaly with is no pulmonary congestion as was seen on the previous chest film in October. IMPRESSION: Stable generalized cardio megaly probable moderate size right pleural effusion most of which is subpulmonic in location, no obvious acute failure at this time
[2017-02-25 21:18] VITALS: BP 130/77
--- NOTE | 2017-02-26 08:21 | RADIOLOGY REPORT PS360 ---
FOOT-LT-3 VIEWS COMPARISON: Right foot 04/30/2013 HISTORY: Suspect possible infection TECHNIQUE: AP lateral and oblique views FINDINGS: There is moderate diffuse soft tissue swelling of the forefoot both superiorly and inferiorly. There is prominent arterial calcification of the dorsalis pedis and posterior tibial artery, is the patient diabetic? There is mild patchy osteoporosis. The tarsal bones metatarsals and phalanges all appear intact. There are prominent spurs of the calcaneus at insertion of Achilles tendon and plantar tendon. IMPRESSION: Mild diffuse osteoporosis, possibly disuse osteoporosis, has the patient been weightbearing? There is no obvious evidence to suggest osteomyelitis at this time.
== END 2017-02-25 21:15 | disposition short-term general hospital (02) ==
LOC: UTC 13:26 → ER 13:30
PROVIDERS: Emergency Medicine
DX: L89.620 Pressure ulcer of left heel, unstageable (principal); E11.621 Type 2 diabetes mellitus with foot ulcer; L97.429 Non-pressure chronic ulcer of left heel and midfoot with unspecified severity; E11.65 Type 2 diabetes mellitus with hyperglycemia; Z79.4 Long term (current) use of insulin; I82.4Z3 Acute embolism and thrombosis of unspecified deep veins of distal lower extremity, bilateral; I10 Essential (primary) hypertension; Z79.01 Long term (current) use of anticoagulants; E03.9 Hypothyroidism, unspecified; I50.9 Heart failure, unspecified
CPT/HCPCS: J1956; J3370